=== PATIENT | female | born 1985 | race Caucasian/White ===

== ENCOUNTER 2018-11-01 16:30 | Emergency (ER) | payer BC, OTHER ==
--- OUTSIDE RECORDS SUMMARY | 2018-11-01 16:32 | XMS REPORT ---
:1985 Author Organization eClinicalWorks Care Team Providers Name Role Phone Santos, Na Provider Role Unavailable Allergies, Adverse Reactions, Alerts Substance Reaction Event Type N.K.D.A. Info Not Available Non Drug Allergy Problems Problem Type Condition Code Onset Dates Condition Status Assessment ADD (attention deficit disorder) F90.9 Active Problem Obesity (BMI 30.0-34.9) E66.9 Active Problem Carpal tunnel syndrome G56.00 Active Problem Over weight E66.3 Active Problem Acute anxiety F41.9 Active Problem Anxiety F41.9 Active Problem Peripheral neuropathy G62.9 Active Problem Allergic rhinitis J30.9 Active Problem ADD (attention deficit disorder) F90.9 Active Medications Medication Code Code Instructions Start End Status Dosage System Date Date Gabapentin ND 43292630688 100 MG Orally Active 1 capsule Three times a day Clonazepam ND 74789383242 0.25 MG Orally Active 1 tablet on three times a the tongue day and allow to dissolve before bedtime Gabapentin ND 49629329572 100 MG Orally Active 1 capsule Three times a day Adderall XR ND 00329269736 30 MG Orally Active 1 capsule Once a day in the morning EpiPen 2-Porter ND 67360868523 0.3 MG/0.3ML Active not defined Injection Nasacort AQ NDC 0 Active not defined Results No Known Results Summary Purpose eClinicalWorks Submission
--- OUTSIDE RECORDS SUMMARY | 2018-11-01 16:32 | XMS REPORT ---
:1985 Author Organization eClinicalWorks Care Team Providers Name Role Phone Santos, Na Provider Role Unavailable Allergies, Adverse Reactions, Alerts Substance Reaction Event Type N.K.D.A. Info Not Available Non Drug Allergy Problems Problem Type Condition Code Onset Dates Condition Status Assessment Nausea R11.0 Active Problem Obesity (BMI 30.0-34.9) E66.9 Active Assessment Fever chills R50.9 Active Assessment ADD (attention deficit disorder) F90.9 Active Problem Carpal tunnel syndrome G56.00 Active Problem Over weight E66.3 Active Problem Acute anxiety F41.9 Active Problem Anxiety F41.9 Active Problem Peripheral neuropathy G62.9 Active Problem Allergic rhinitis J30.9 Active Problem ADD (attention deficit disorder) F90.9 Active Medications Medication Code Code Instructions Start End Status Dosage System Date Date Clonazepam ND 14374538495 0.25 MG Orally Active 1 tablet on three times a the tongue day and allow to dissolve before bedtime Gabapentin ND 98327707147 100 MG Orally Active 1 capsule Three times a day EpiPen 2-Porter ND 84200029385 0.3 MG/0.3ML Active not defined Injection Gabapentin ND 80976414188 100 MG Orally Active 1 capsule Three times a day Nasacort AQ NDC 0 Active not defined Adderall XR ND 55242242677 30 MG Orally June 29, Active 1 capsule Once a day 2019 in the morning Results No Known Results Summary Purpose eClinicalWorks Submission
--- OUTSIDE RECORDS SUMMARY | 2018-11-01 16:32 | XMS REPORT ---
:1985 Author Organization eClinicalWorks Care Team Providers Name Role Phone Santos, Na Provider Role Unavailable Allergies No Known Allergies Problems Problem Type Condition Code Onset Dates [...] Start End Status Dosage System Date Date Nasacort AQ NDC 0 Active not defined Adderall XR [facility] 20910061405 30 MG Orally October 06, Active 1 capsule Once a day 2019 in the morning EpiPen 2-Porter ND 55455945006 0.3 MG/0.3ML Active not defined Injection Gabapentin ND 55800737809 100 MG Orally Active 1 capsule Three times a day Clonazepam ND 10091366401 0.25 MG Orally Active 1 tablet on three times a the day and allow to dissolve before bedtime Results No Known Results Summary Purpose eClinicalWorks Submission
--- OUTSIDE RECORDS SUMMARY | 2018-11-01 16:32 | XMS REPORT ---
[...] Problem ADD (attention deficit disorder) F90.9 Active Assessment Obesity (BMI 30.0-34.9) E66.9 Active Assessment Carpal tunnel syndrome G56.00 Active Assessment Acute anxiety F41.9 Active Assessment Generalized body aches R52 Active Assessment Blood tests for routine general Z00.00 Active physical examination Assessment Peripheral neuropathy G62.9 Active Medications Medication Code Code Instructions Start End Status Dosage System Date Date Gabapentin [facility] 16406814638 100 MG Orally Active 1 capsule Three times a day Gabapentin [facility] 75544151131 100 MG Orally Active 1 capsule Three times a day EpiPen 2-Porter [facility] 93187323529 0.3 MG/0.3ML Active not defined Injection Nasacort AQ NDC 0 Active not defined Adderall XR [facility] 72082853623 30 MG Orally Active 1 capsule Once a day in the morning Clonazepam ND 29720169403 0.25 MG Orally Active 1 tablet on three times a the tongue day and allow to dissolve before bedtime Results No Known Results Summary Purpose eClinicalWorks Submission
--- OUTSIDE RECORDS SUMMARY | 2018-11-01 16:32 | XMS REPORT ---
:1985 Author Organization eClinicalWorks Care Team Providers Name Role Phone Santos, Na Provider Role Unavailable Allergies, Adverse Reactions, Alerts Substance Reaction Event Type N.K.D.A. Info Not Available Non Drug Allergy Problems Problem Type Condition Code Onset Dates Condition Status Assessment Peripheral neuropathy G62.9 Active Assessment ADD (attention deficit disorder) F90.9 Active Assessment Blood tests for routine general Z00.00 Active physical examination Assessment Obesity (BMI 30.0-34.9) E66.9 Active Assessment Carpal tunnel syndrome G56.00 Active Problem ADD (attention deficit disorder) F90.9 Active Problem Anxiety F41.9 Active Problem Allergic rhinitis J30.9 Active Problem Over weight E66.3 Active Problem Obesity (BMI 30.0-34.9) E66.9 Active Problem Peripheral neuropathy G62.9 Active Problem Carpal tunnel syndrome G56.00 Active Medications Medication Code Code Instructions Start End Status Dosage System Date Date EpiPen 2-Porter [facility] 63330599909 0.3 MG/0.3ML Active not defined Injection Nasacort AQ NDC 0 Active not defined Gabapentin ND 80123821829 100 MG Orally Oct 17, Active 1 capsule Three times a 2018 day Clonazepam ND 69895930924 0.25 MG Orally Active 1 tablet on three times a the day and allow to dissolve before bedtime Adderall XR [facility] 11527958516 30 MG Orally Active 1 capsule Once a day in the morning Results No Known Results Summary Purpose eClinicalWorks Submission
[2018-11-01] MEDS ORDERED: TETANUS & DIPHTHERIA TOX,ADULT 0.5 ML VIAL ONE (16:56)
[2018-11-01] MEDS ORDERED: HYDROCODONE/APAP 5/325 MG TAB ONE (16:56)
--- NOTE | 2018-11-01 17:44 | ER ---
Nurse's Notes [facility] Name: Renate Ruth Age: 33 yrs Sex: Female : 1985 Arrival Date: 11/01/2018 Time: 16:32 Bed 28 Private MD: Diagnosis: Puncture wound with foreign body of left thumb without damage to nail Presentation: 11/01 16:37 Presenting complaint: Patient states: i was cutting open another knife that had a tie tw2 strap, when the tie strap broke the knife stabbed in to the side my LEFT thumb. Transition of care: patient was not received from another setting of care. Complicating Factors: There are no complicating factors for this patient. Onset of symptoms was November 01, 2018. Risk Assessment: Do you want to hurt yourself or someone else? Patient reports no desire to harm self or others. Initial Sepsis Screen: Does the patient meet any 2 criteria? No. Patient's initial sepsis screen is negative. Does the patient have a suspected source of infection? No. Patient's initial sepsis screen is negative. Care prior to arrival: None. 16:37 Method Of Arrival: Ambulatory tw2 16:37 Acuity: VISH 4 tw2 16:38 Presenting complaint: Patient states: "i think the knife stabbed into my thumb about a tw2 half an inch, i got lightheaded from this and it rates up there with labor pains". Triage Assessment: 16:39 General: Appears in no apparent distress. Behavior is calm, cooperative, appropriate tw2 for age. Pain: Complains of pain in palmar aspect of distal phalanx of left thumb and palmar aspect of proximal phalanx of left thumb. Injury Description: Laceration sustained to palmar aspect of distal phalanx of left thumb and palmar aspect of proximal phalanx of left thumb. 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 - Social history:: Smoking status: . - Ebola Screening: : Patient denies travel to an Ebola-affected area in the 21 days before illness onset. Screenin:42 Abuse screen: Denies threats or abuse. Nutritional screening: No deficits noted. tw2 Tuberculosis screening: No symptoms or risk factors identified. Fall Risk None identified. Assessment: 16:43 Musculoskeletal: Range of motion: intact in all extremities. Injury Description: tw2 Laceration is clean, not bleeding. 16:43 General: Appears in no apparent distress. Behavior is cooperative, appropriate for age. tw2 Pain: Complains of pain in palmar aspect of proximal phalanx of left thumb and palmar aspect of distal phalanx of left thumb. Neuro: Level of Consciousness is awake, alert, obeys commands, Oriented to person, place, time, situation. Cardiovascular: Patient's skin is warm and dry. Respiratory: Airway is patent Respiratory effort is even, unlabored, Respiratory pattern is regular, symmetrical. GI: No signs and/or symptoms were reported involving the gastrointestinal system. : No signs and/or symptoms were reported regarding the genitourinary system. Derm: No signs and/or symptoms reported regarding the dermatologic system. 18:07 Reassessment: Patient appears in no apparent distress at this time. Patient and/or ss family updated on plan of care and expected duration. Pain level reassessed. Patient is alert, oriented x 3, equal unlabored respirations, skin warm/dry/pink. Vital Signs: 16:38 BP 139 / 96; Pulse 87; Resp 17; Temp 98.4; Pulse Ox 99% on R/A; Weight 91.63 kg (R); tw2 Height 5 ft. 7 in. (170.18 cm); Pain 8/10; 16:38 Body Mass Index 31.64 (91.63 kg, 170.18 cm) tw2 ED Course: 16:32 Patient arrived in ED. as 16:38 Triage completed. tw2 16:38 Arm band placed on. tw2 16:41 Emmett Soto NP is PHCP. pm1 16:41 Wilton Little MD is Attending Physician. pm1 16:42 Bed in low position. Call light in reach. tw2 16:56 John Julien LVN is Primary Nurse. em 17:32 Wound care: to abrasion, located on palmar aspect of distal phalanx of left thumb was lt1 cleaned with Hibiclens, soaked in normal saline solution, debrided using Betadine scrub, irrigated with normal saline, dressed with Neosporin, Kerlix, non adherent pad. 17:38 Hand Right 3 View XRAY In Process Unspecified. EDMS 18:08 No provider procedures requiring assistance completed. Patient did not have IV access ss during this emergency room visit. 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 Exp: em 06/25/2020. Lot #: [id number]. } Route: IM; Site: left deltoid; 17:30 Follow up: Response: No adverse reaction em 17:00 Drug: [place] 5 mg-325 mg 1 tabs Route: PO; em 17:30 Follow up: Response: No adverse reaction; Marked relief of symptoms; Pain is decreased; em RASS: Alert and Calm (0) Outcome: 17:43 Discharge ordered by MD. pm1 18:08 Discharged to home ambulatory, with family. ss 18:08 Condition: good 18:08 Discharge instructions given to patient, family, Instructed on discharge instructions, follow up and referral plans. no drinking with medication, no driving heavy equipment, medication usage, wound care, Demonstrated understanding of instructions, follow-up care, medications, wound care, Prescriptions given X 2. 18:09 Patient left the ED. ss Signatures: Dispatcher [employer] EDDC John Julien LVN LVN em Katie Valle Shelby, EDGAR RN Emmett Soto NP FOUNTAIN HELPER pm1 Niharika Adan RN RN 2 Linda Cast lt1
--- NOTE | 2018-11-01 17:44 | EDPHYS ---
Physician Documentation [facility] Name: Renate Ruth Age: 33 yrs Sex: Female : 1985 Arrival Date: 11/01/2018 Time: 16:32 Bed 28 Private MD: ED Physician Wilton Little HPI: 11/01 16:58 This 33 yrs old Female presents to ER via Ambulatory with complaints of Thumb pm1 Laceration. 16:58 The patient or guardian reports injury. The complaints affect the palmar aspect of pm1 distal phalanx of left thumb. Context: The problem was sustained at home, resulted from Accidental laceration of left thumb while cutting open packaging. Onset: The symptoms/episode began/occurred just prior to arrival. Modifying factors: The symptoms are alleviated by pressure to area. Associated signs and symptoms: Pertinent negatives: cyanosis distally, decreased sensation distally, numbness distally, tingling distally. Severity of symptoms: in the emergency department the symptoms have improved. The patient has not experienced similar symptoms in the past. The patient has not recently seen a physician. 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 - Social history:: Smoking status: . - Ebola Screening: : Patient denies travel to an Ebola-affected area in the 21 days before illness onset. ROS: 16:58 Constitutional: Negative for fever, chills, and weight loss, Cardiovascular: Negative pm1 for chest pain, palpitations, and edema, Respiratory: Negative for shortness of breath, cough, wheezing, and pleuritic chest pain, Abdomen/GI: Negative for abdominal pain, nausea, vomiting, diarrhea, and constipation, Back: Negative for injury and pain, MS/Extremity: Negative for injury and deformity. 16:58 Neuro: Negative for headache, weakness, numbness, tingling, and seizure. 16:58 Skin: Positive for laceration(s), of the palmar aspect of distal phalanx of left thumb. Exam: 16:58 Constitutional: This is a well developed, well nourished patient who is awake, alert, pm1 and in no acute distress. Head/Face: Normocephalic, atraumatic. Chest/axilla: Normal chest wall appearance and motion. Nontender with no deformity. No lesions are appreciated. Cardiovascular: Regular rate and rhythm with a normal S1 and S2. No gallops, murmurs, or rubs. Normal PMI, no JVD. No pulse deficits. Respiratory: Lungs have equal breath sounds bilaterally, clear to auscultation and percussion. No rales, rhonchi or wheezes noted. No increased work of breathing, no retractions or nasal flaring. 16:58 Back: No spinal tenderness. No costovertebral tenderness. Full range of motion. MS/ Extremity: Pulses equal, no cyanosis. Neurovascular intact. Full, normal range of motion. 16:58 Skin: Appearance: normal except for affected area, injury, laceration(s), the wound is approximately 0.3 cm(s), of the palmar aspect of distal phalanx of left thumb, that can be described as not bleeding.. 16:58 Neuro: Orientation: is normal, Motor: is normal, moves all fours, Sensation: is normal, no obvious gross deficits, Gait: is steady, at a normal pace, without difficulty. Vital Signs: 16:38 BP 139 / 96; Pulse 87; Resp 17; Temp 98.4; Pulse Ox 99% on R/A; Weight 91.63 kg (R); tw2 Height 5 ft. 7 in. (170.18 cm); Pain 8/10; 16:38 Body Mass Index 31.64 (91.63 kg, 170.18 cm) tw2 MDM: 16:43 Patient medically screened. pm1 17:04 Data reviewed: vital signs. Data interpreted: Pulse oximetry: on room air is 99 %. pm1 Interpretation: normal. ED course: small wound is not actively bleeding and not gaping open. No apparent need for closure with sutures. Will discharge home with antibiotics post x-ray, tetanus, and pain medication. 17:42 Counseling: I had a detailed discussion with the patient and/or guardian regarding: the pm1 historical points, exam findings, and any diagnostic results supporting the discharge/admit diagnosis, radiology results, the need for outpatient follow up, to return to the emergency department if symptoms worsen or persist or if there are any questions or concerns that arise at home. 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 Exp: em 06/25/2020. Lot #: [id number]. } Route: IM; Site: left deltoid; 17:30 Follow up: Response: No adverse reaction em 17:00 Drug: [place] 5 mg-325 mg 1 tabs Route: PO; em 17:30 Follow up: Response: No adverse reaction; Marked relief of symptoms; Pain is decreased; em RASS: Alert and Calm (0) Disposition: 11/01/18 17:43 Discharged to Home. Impression: Puncture wound with foreign body of left thumb without damage to nail. - Condition is Stable. - Discharge Instructions: Puncture Wound. - Prescriptions for Keflex 500 mg Oral Capsule - take 1 capsule by ORAL route every 12 hours for 10 days; 20 capsule. Tylenol- Codeine #3 300-30 mg Oral Tablet - take 2 tablets by ORAL route every 6 hours As needed; 20 tablet. - Work release form, Medication Reconciliation Form, Thank You Letter, Antibiotic Education, Prescription Opioid Use form. - Follow up: Emergency Department; When: As needed; Reason: Worsening of condition. Follow up: Private Physician; When: 2 - 3 days; Reason: Recheck today's complaints, Continuance of care, Re-evaluation by your physician. - Problem is new. - Symptoms have improved. Addendum: 11/03/2018 15:37 Co-signature as Attending Physician, Wilton Little MD. g s Signatures: Dispatcher [employer] John Vasquez, PAINT CREW SUPERVISOR PAINT CREW SUPERVISOR em Jolanta Gomez RN RN ss Emmett Soto, WARP STARTER WARP STARTER pm1 Niharika Adan RN RN tw2 Wilton Little MD MD Corrections: (The following items were deleted from the chart) 11/01 18:09 17:43 11/01/2018 17:43 Discharged to Home. Impression: Puncture wound with foreign body ss of left thumb without damage to nail. Condition is Stable. Forms are Medication Reconciliation Form, Thank You Letter, Antibiotic Education, Prescription Opioid Use. Follow up: Emergency Department; When: As needed; Reason: Worsening of condition. Follow up: Private Physician; When: 2 - 3 days; Reason: Recheck today's complaints, Continuance of care, Re-evaluation by your physician. Problem is new. Symptoms have improved. pm1
--- NOTE | 2018-11-01 17:45 | RAD REPORT ---
EXAM DESCRIPTION: RAD - Hand Right 3 View - 11/01/2018 5:37 pm CLINICAL HISTORY: Right hand pain status post injury FINDINGS: No fracture or dislocation is seen.
== END 2018-11-01 18:09 | disposition home or self-care (01) ==
LOC: ER 16:30
DX: S61.042A Puncture wound with foreign body of left thumb without damage to nail, initial encounter (principal); W45.8XXA Other foreign body or object entering through skin, initial encounter; Y93.89 Activity, other specified; Y92.009 Unspecified place in unspecified non-institutional (private) residence as the place of occurrence of the external cause; Z23 Encounter for immunization; F90.9 Attention-deficit hyperactivity disorder, unspecified type
CPT/HCPCS: 90714

== ENCOUNTER 2018-12-21 17:30 | Emergency (ER) | payer BC ==
[2018-12-21] MEDS ORDERED: MORPHINE 4 MG/ML SYR ONE (17:57)
[2018-12-21] MEDS ORDERED: FAMOTIDINE 20 MG/2 ML VIAL IV ONE (17:57)
[2018-12-21] MEDS ORDERED: NA CHLORIDE 0.9% 1,000 ML ONE (17:57)
[2018-12-21] MEDS ORDERED: ONDANSETRON 4 MG/2 ML VIAL ONE ×2 (17:57→20:13)
[2018-12-21 18:06] LABS: Basophils % 0.3 % (0-1.3); Hematocrit 42.7 % (36.0-45.0); Lymphocytes % 10.8 % (15.3-44.8); MPV 8.8 fL (7.6-11.3); RBC Red Blood Cell Count 4.79 M/uL (3.86-4.86)
[2018-12-21 18:20] LABS: Albumin 3.4 g/dL (3.4-5.0); Bilirubin Direct 0.3 mg/dL (0-0.2); Bilirubin Total 1.3 mg/dL (0.2-1.0); Potassium 3.6 mmol/L (3.5-5.1); Protein, Total 6.8 g/dL (6.4-8.2)
--- NOTE | 2018-12-21 19:10 | RAD REPORT ---
EXAM DESCRIPTION: CTAbdomen Pelvis W Contrast - 12/21/2018 7:00 pm CLINICAL HISTORY: Abdominal pain. ABD PAIN COMPARISON: <Comparisons> TECHNIQUE: Biphasic CT imaging of the abdomen and pelvis was performed with 100 ml non-ionic IV cont rast. All CT scans are performed using dose optimization technique as appropriate and may include automated exposure control or mA/KV adjustment according to patient size. FINDINGS: The lung bases are clear. The liver, spleen, pancreas, adrenal glands and kidneys are within normal limits. No bowel obstruction, free air, free fluid or abscess. The appendix is not identified as a discrete structure, however, no secondary findings of appendicitis are identified. No evidence of significan t lymphadenopathy. No suspicious bony findings. IUD is present in the uterus. Trace pelvic free fluid. IMPRESSION: No acute intra-abdominal or pelvic finding.
[2018-12-21] MEDS ORDERED: FENTANYL CITR 100 MCG/2 ML ONE (20:13)
[2018-12-21 20:42] LABS: Urine Blood NEGATIVE (NEG); Urine Glucose NEGATIVE (NEG); Urine Protein NEGATIVE (NEG); Urine pH 5.5 (5.0-7.0)
--- NOTE | 2018-12-21 21:16 | EDPHYS ---
Physician Documentation [facility] Name: Renate Ruth Age: 33 yrs Sex: Female : 1985 Arrival Date: 12/21/2018 Time: 17:31 Bed 6 Private MD: Taylor Santos ED Physician Mike Palacio HPI: 12/21 18:10 This 33 yrs old Female presents to ER via Ambulatory with complaints of kdr Abdominal Pain. 18:10 The patient presents with abdominal pain in the epigastric area, in the upper abdomen. kdr Onset: The symptoms/episode began/occurred gradually, yesterday. The symptoms radiate to back. Associated signs and symptoms: Pertinent positives: nausea and vomiting, diarrhea, Pertinent negatives: anorexia, blood in stools, chest pain, constipation. The symptoms are described as achy, burning, crampy, steady, vague, waxing/waning. Modifying factors: The symptoms are alleviated by nothing, the symptoms are aggravated by food. Severity of pain: At its worst the pain was moderate in the emergency department the pain is unchanged. The patient has not experienced similar symptoms in the past. The patient has not recently seen a physician. [facility]: 21:34 unknown ca1 Historical: - Allergies: 17:37 No Known Allergies; sv - PMHx: 17:37 ADD/ADHD; sv - PSHx: 17:37 Tonsillectomy; sv - Immunization history:: Adult Immunizations unknown. - Social history:: Smoking status: Patient/guardian denies using tobacco. - Ebola Screening: : No symptoms or risks identified at this time. ROS: 18:10 Constitutional: Negative for fever, chills, and weight loss, Eyes: Negative for injury, kdr pain, redness, and discharge, ENT: Negative for injury, pain, and discharge, Neck: Negative for injury, pain, and swelling, Cardiovascular: Negative for chest pain, palpitations, and edema, Respiratory: Negative for shortness of breath, cough, wheezing, and pleuritic chest pain, Back: Negative for injury and pain, : Negative for injury, bleeding, discharge, and swelling, MS/Extremity: Negative for injury and deformity, Skin: Negative for injury, rash, and discoloration, Neuro: Negative for headache, weakness, numbness, tingling, and seizure activity. Psych: Negative for depression, anxiety, suicide ideation, homicidal ideation, and hallucinations, Allergy/Immunology: Negative for hives, rash, and allergies, Endocrine: Negative for neck swelling, polydipsia, polyuria, polyphagia, and marked weight changes, Hematologic/Lymphatic: Negative for swollen nodes, abnormal bleeding, and unusual bruising. 18:10 Abdomen/GI: Positive for abdominal pain, nausea, vomiting, and diarrhea, Negative for constipation, abdominal cramps, abdominal distension, anorexia, dysphagia, hematemesis, black/tarry stool, rectal pain, rectal bleeding. Exam: 18:10 Constitutional: This is a well developed, well nourished patient who is awake, alert, kdr and in mild distress. Head/Face: Normocephalic, atraumatic. Eyes: Pupils equal round and reactive to light, extra-ocular motions intact. Lids and lashes normal. Conjunctiva and sclera are non-icteric and not injected. Cornea within normal limits. Periorbital areas with no swelling, redness, or edema. Neck: Trachea midline, no thyromegaly or masses palpated, and no cervical lymphadenopathy. Supple, full range of motion without nuchal rigidity, or vertebral point tenderness. No Meningismus. Chest/axilla: Normal chest wall appearance and motion. Nontender with no deformity. No lesions are appreciated. Cardiovascular: Regular rate and rhythm with a normal S1 and S2. No gallops, murmurs, or rubs. Normal PMI, no JVD. No pulse deficits. Respiratory: Lungs have equal breath sounds bilaterally, clear to auscultation and percussion. No rales, rhonchi or wheezes noted. No increased work of breathing, no retractions or nasal flaring. Back: No spinal tenderness. No costovertebral tenderness. Full range of motion. Skin: Warm, dry with normal turgor. Normal color with no rashes, no lesions, and no evidence of cellulitis. MS/ Extremity: Pulses equal, no cyanosis. Neurovascular intact. Full, normal range of motion. Neuro: Awake and alert, GCS 15, oriented to person, place, time, and situation. Cranial nerves II-XII grossly intact. Motor strength 5/5 in all extremities. Sensory grossly intact. Cerebellar exam normal. Normal gait. Psych: Awake, alert, with orientation to person, place and time. Behavior, mood, and affect are within normal limits. 18:10 Abdomen/GI: Inspection: abdomen appears normal, Bowel sounds: active, diminished, in all quadrants, Palpation: soft, mild abdominal tenderness, in the epigastric area, mass, is not appreciated, rebound tenderness, is not appreciated, voluntary guarding, is not appreciated. Vital Signs: 17:37 BP 116 / 82; Pulse 112; Resp 22; Temp 98.2; Pulse Ox 100% ; Weight 92.99 kg; Height 5 sv ft. 7 in. (170.18 cm); Pain 6/10; 18:30 BP 112 / 80; Pulse 99; Resp 17 S; Pulse Ox 97% on R/A; ca1 19:30 BP 107 / 71; Pulse 96; Resp 17 S; Pulse Ox 100% on R/A; ca1 20:50 BP 103 / 67; Pulse 96; Resp 18 S; Pulse Ox 100% on R/A; ca1 21:33 BP 110 / 70; Pulse 93; Resp 16 S; Pulse Ox 100% on R/A; ca1 17:37 Body Mass Index 32.11 (92.99 kg, 170.18 cm) sv MDM: 18:10 Data reviewed: vital signs, nurses notes, lab test result(s), radiologic studies. kdr Counseling: I had a detailed discussion with the patient and/or guardian regarding: the historical points, exam findings, and any diagnostic results supporting the discharge/admit diagnosis, lab results, radiology results. 21:16 Patient medically screened. kdr 21:17 ED course: The patient is feeling better but still with mild epigastric pain. Gave the kdr patient the option of either admission or follow-up and she asked to be discharged. I invited her to return if she was not continuing to improve or worsen. 12/21 17:40 Order name: Basic Metabolic Panel; Complete Time: 18:33 kdr 12/21 17:40 Order name: CBC with Diff; Complete Time: 18:33 kdr 12/21 17:40 Order name: Creatinine for Radiology; Complete Time: 18:33 kdr 12/21 17:40 Order name: Hepatic Function; Complete Time: 18:33 kdr 12/21 17:40 Order name: Lipase; Complete Time: 18:33 kdr 12/21 20:15 Order name: Urine Dipstick--Ancillary (enter results); Complete Time: 21:09 mw2 12/21 17:57 Order name: CT Abd/Pelvis - IV Contrast Only; Complete Time: 20:03 kdr 12/21 20:15 Order name: Urine --Ancillary (enter results); Complete Time: 21:09 mw2 12/21 20:30 Order name: Flu kdr 12/21 20:31 Order name: Influenza Screen (A ; Complete Time: 21:55 EDMS 12/21 17:40 Order name: IV Saline Lock; Complete Time: 18:05 kdr 12/21 17:40 Order name: Labs collected and sent; Complete Time: 18:05 kdr 12/21 17:54 Order name: Urine Dipstick-Ancillary (obtain specimen); Complete Time: 20:11 kdr 12/21 17:54 Order name: Urine Test (obtain specimen); Complete Time: 20:11 kdr Administered Medications: 18:04 Drug: NS 0.9% 1000 ml Route: IV; Rate: 1 bolus; Site: right antecubital; ph 19:17 Follow up: Response: No adverse reaction; IV Status: Completed infusion ph 18:04 Drug: Pepcid 20 mg Route: IVP; Site: right antecubital; ph 19:17 Follow up: Response: No adverse reaction ph 18:05 Drug: Zofran 4 mg Route: IVP; Site: right antecubital; ph 19:17 Follow up: Response: No adverse reaction; Nausea is decreased ph 18:05 Drug: morphine 4 mg Route: IVP; Site: right antecubital; ph 19:17 Follow up: Response: No adverse reaction; Pain is decreased; RASS: Alert and Calm (0) ph 20:12 Drug: Zofran 4 mg Route: IVP; Site: right antecubital; ca1 21:24 Follow up: Response: No adverse reaction; Nausea is decreased ca1 20:15 Drug: fentaNYL (PF) 50 mcg {Note: RASS - 0.} Route: IVP; Site: right antecubital; ca1 21:00 Follow up: Response: No adverse reaction; Pain is decreased ca1 21:24 Not Given (Physician Discretion): NS 0.9% 1000 ml IV at 125 ml/hr continuous ca1 21:24 Drug: [place] 10 mg-325 mg 1 tabs Route: PO; ca1 21:33 Follow up: Response: Medication administered at discharge. ca1 Disposition: 12/21/18 21:16 Discharged to Home. Impression: Abdominal and pelvic pain, Nausea and vomiting. - Condition is Stable. - Discharge Instructions: Nausea and Vomiting, Adult, [id number], Abdominal Pain, Adult, Oewi-cl-Ulag. - Prescriptions for Protonix 40 mg Oral Tablet, Delayed Release (E.C.) - take 1 tablet by ORAL route once daily; 15 tablet. Tylenol- Codeine #4 300-60 mg Oral Tablet - take 1 tablet by ORAL route every 6 hours As needed; 12 tablet. Zofran 4 mg Oral Tablet - take 1 tablet by ORAL route every 12 hours As needed; 15 tablet. Bentyl 20 mg Oral Tablet - take 1 tablet by ORAL route every 6 hours As needed; 20 tablet. - Medication Reconciliation Form, Thank You Letter, Prescription Opioid Use form. - Work release form (12/21/18 21:54). snw - Follow up: Taylor Santos MD; When: 2 - 3 days; Reason: If symptoms return, Further diagnostic work-up, Recheck today's complaints, Continuance of care, Re-evaluation by your physician. - Problem is new. - Symptoms have improved. Signatures: Dispatcher [employer] EDSharonda Beckford RN RN Mike Palacio MD MD [facility] Katherine Nieves, MAIN LINE ASSEMBLER-C MAIN LINE ASSEMBLER-Csnw Brisa Westfall, EDGAR RN ph Brittany Guerrero RN RN ca1 Corrections: (The following items were deleted from the chart) 21:35 21:16 12/21/2018 21:16 Discharged to Home. Impression: Abdominal and pelvic pain; ca1 Nausea and vomiting. Condition is Stable. Discharge Instructions: Nausea and Vomiting, Adult, [id number], Abdominal Pain, Adult, Memr-ka-Qqli. Prescriptions for Protonix 40 mg Oral Tablet, Delayed Release (E.C.) - take 1 tablet by ORAL route once daily; 15 tablet, Tylenol-Codeine #4 300-60 mg Oral Tablet - take 1 tablet by ORAL route every 6 hours As needed; 12 tablet, Zofran 4 mg Oral Tablet - take 1 tablet by ORAL route every 12 hours As needed; 15 tablet. and Forms are Medication Reconciliation Form, Thank You Letter, Antibiotic Education, Prescription Opioid Use. Follow up: Taylor Santos; When: 2 - 3 days; Reason: If symptoms return, Further diagnostic work-up, Recheck today's complaints, Continuance of care, Re-evaluation by your physician. Problem is new. Symptoms have improved. kdr
--- NOTE | 2018-12-21 21:16 | ER ---
Nurse's Notes [facility] Name: Renate Ruth Age: 33 yrs Sex: Female : 1985 Arrival Date: 12/21/2018 Time: 17:31 Bed 6 Private MD: Taylor Santos Diagnosis: Abdominal and pelvic pain;Nausea and vomiting Presentation: 12/21 17:36 Presenting complaint: Patient states: mid abd cramping, n/v/d started last night. sv Transition of care: patient was not received from another setting of care. Onset of symptoms was December 20, 2018. Risk Assessment: Do you want to hurt yourself or someone else? Patient reports no desire to harm self or others. Care prior to arrival: None. 17:36 Method Of Arrival: Ambulatory sv 17:36 Acuity: VISH 3 sv 18:11 Initial Sepsis Screen: Does the patient meet any 2 criteria? No. Patient's initial ph sepsis screen is negative. Does the patient have a suspected source of infection? No. Patient's initial sepsis screen is negative. 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 - Social history:: Smoking status: Patient/guardian denies using tobacco. - Ebola Screening: : No symptoms or risks identified at this time. Screenin:11 Abuse screen: Denies threats or abuse. Denies injuries from another. Nutritional ph screening: No deficits noted. Tuberculosis screening: No symptoms or risk factors identified. Fall Risk None identified. Assessment: 18:07 General: Appears in no apparent distress. Behavior is calm, cooperative, appropriate ph for age. 18:08 Pain: Complains of pain in right upper quadrant and left upper quadrant. Pain: Pain ph radiates to back. Neuro: Level of Consciousness is awake, alert, obeys commands, Oriented to person, place, time, situation. Cardiovascular: Capillary refill < 3 seconds in bilateral fingers Patient's skin is warm and dry. Respiratory: Airway is patent Respiratory effort is even, unlabored, Respiratory pattern is regular, symmetrical. GI: Abdomen is round distended, Bowel sounds present X 4 quads. Abd is soft X 4 quads Reports upper abdominal pain, diarrhea, nausea, vomiting. Derm: Skin is intact, is healthy with good turgor, Skin is pink, warm \T\ dry. Musculoskeletal: Circulation, motion, and sensation intact. Range of motion: intact in all extremities. 20:05 Reassessment: Patient appears in no apparent distress at this time. Patient is alert, ca1 oriented x 3, equal unlabored respirations, skin warm/dry/pink. pt c/o abdl pain, notified provider. 20:50 Reassessment: Patient appears in no apparent distress at this time. Patient is alert, ca1 oriented x 3, equal unlabored respirations, skin warm/dry/pink. Patient states feeling better. 21:33 Reassessment: Patient appears in no apparent distress at this time. Patient is alert, ca1 oriented x 3, equal unlabored respirations, skin warm/dry/pink. Patient states feeling better. Vital Signs: 17:37 BP 116 / 82; Pulse 112; Resp 22; Temp 98.2; Pulse Ox 100% ; Weight 92.99 kg; Height 5 sv ft. 7 in. (170.18 cm); Pain 6/10; 18:30 BP 112 / 80; Pulse 99; Resp 17 S; Pulse Ox 97% on R/A; ca1 19:30 BP 107 / 71; Pulse 96; Resp 17 S; Pulse Ox 100% on R/A; ca1 20:50 BP 103 / 67; Pulse 96; Resp 18 S; Pulse Ox 100% on R/A; ca1 21:33 BP 110 / 70; Pulse 93; Resp 16 S; Pulse Ox 100% on R/A; ca1 17:37 Body Mass Index 32.11 (92.99 kg, 170.18 cm) sv ED Course: 17:31 Patient arrived in ED. rg4 17:31 Taylor Santos MD is Private Physician. rg4 17:37 Triage completed. sv 17:38 Arm band placed on. sv 17:39 Brisa Westfall RN is Primary Nurse. ph 17:40 Mike Palacio MD is Attending Physician. kdr 17:55 Inserted saline lock: 20 gauge in right antecubital area, using aseptic technique. ph Blood collected. 18:11 Patient has correct armband on for positive identification. Placed in gown. Bed in low ph position. Call light in reach. Side rails up X 1. Pulse ox on. NIBP on. Door closed. Noise minimized. Lights dimmed. Warm blanket given. 19:02 CT Abd/Pelvis - IV Contrast Only In Process Unspecified. EDMS 21:15 Taylor Santos MD is Referral Physician. kdr 21:34 No provider procedures requiring assistance completed. IV discontinued, intact, ca1 bleeding controlled, No redness/swelling at site. Pressure dressing applied. Administered Medications: 18:04 Drug: NS 0.9% 1000 ml Route: IV; Rate: 1 bolus; Site: right antecubital; ph 19:17 Follow up: Response: No adverse reaction; IV Status: Completed infusion ph 18:04 Drug: Pepcid 20 mg Route: IVP; Site: right antecubital; ph 19:17 Follow up: Response: No adverse reaction ph 18:05 Drug: Zofran 4 mg Route: IVP; Site: right antecubital; ph 19:17 Follow up: Response: No adverse reaction; Nausea is decreased ph 18:05 Drug: morphine 4 mg Route: IVP; Site: right antecubital; ph 19:17 Follow up: Response: No adverse reaction; Pain is decreased; RASS: Alert and Calm (0) ph 20:12 Drug: Zofran 4 mg Route: IVP; Site: right antecubital; ca1 21:24 Follow up: Response: No adverse reaction; Nausea is decreased ca1 20:15 Drug: fentaNYL (PF) 50 mcg {Note: RASS - 0.} Route: IVP; Site: right antecubital; ca1 21:00 Follow up: Response: No adverse reaction; Pain is decreased ca1 21:24 Not Given (Physician Discretion): NS 0.9% 1000 ml IV at 125 ml/hr continuous ca1 21:24 Drug: [place] 10 mg-325 mg 1 tabs Route: PO; ca1 21:33 Follow up: Response: Medication administered at discharge. ca1 Outcome: 21:16 Discharge ordered by . kdr 21:34 Discharged to home via wheelchair, with family. ca1 21:34 Condition: stable 21:34 Discharge instructions given to patient, Instructed on discharge instructions, follow up and referral plans. medication usage, Demonstrated understanding of instructions, follow-up care, medications, Prescriptions given X 4. 21:35 Patient left the ED. ca1 Signatures: Dispatcher [employer] EDMS Ayush Johnsonie, RN RN sv Mike Palacio MD MD [facility] Brisa Westfall RN RN Tiara Leblanc 4 Brittany Guerrero RN RN ca1 Corrections: (The following items were deleted from the chart) 18:10 18:07 General: Appears in no apparent distress. ph ph
[2018-12-21] MEDS ORDERED: HYDROCODONE/APAP 10/325 TAB ONE (21:20)
[2018-12-21 22:19] VITALS: TEMP 98.2
[2018-12-21 22:21] VITALS: O2SAT 100
[2018-12-21 22:24] VITALS: BP 110/70
== END 2018-12-21 21:35 | disposition home or self-care (01) ==
LOC: ER 17:30
DX: R11.2 Nausea with vomiting, unspecified (principal)
CPT/HCPCS: 96361; 85025; 80048; 36415; 81025; 80076; 81003; 83690; 87804 ×2; 74177; 96375; 96374; 99284; Q9967; J3010; J7030; J2405 ×2

== ENCOUNTER 2020-12-14 10:09 | Day surgery (SDC) | payer BC ==
[2020-12-11 08:51] LABS: Absolute Lymphocytes (CBC) 1.6 K/uL (0.7-4.9); Hematocrit 43.6 % (36.0-45.0); Lymphocytes % 23.2 % (15.3-44.8); MPV 8.7 fL (7.6-11.3); RBC Red Blood Cell Count 4.68 M/uL (3.86-4.86)
[2020-12-11 08:53] LABS: Urine Appearance CLEAR (Clear); Urine Bilirubin NEGATIVE (Negative); Urine Blood NEGATIVE (Negative); Urine Color YELLOW (Yellow); Urine Glucose NEGATIVE (Negative); Urine Protein NEGATIVE (Negative); Urine Urobilinogen 0.2 mg/dL (0.2-1.0)
[2020-12-11 09:00] LABS: Urine Microscopic Reflex NO UMIC
[2020-12-14] MEDS ORDERED: SCOPOLAMINE HYDROBROMIDE PATCH TD ONE ×2 (10:40→10:53)
[2020-12-14] MEDS ORDERED: Ringers Lactate 1,000 ML IV ONE ×2 (10:53→16:08)
[2020-12-14] MEDS ORDERED: CEFAZOLIN/NS 1gm 1 GM/50 ML BAG ONE (10:54)
[2020-12-14] MEDS ORDERED: CEFAZOLIN 2 GM IN 0.9% NACL 2 GM/100 ML BAG ONE (10:54)
[2020-12-14] MEDS ORDERED: FENTANYL CITR 250 MCG/5 ML ONE (12:09)
[2020-12-14] MEDS ORDERED: dexAMETHasone 10 MG/ML VIAL ONE (12:09)
[2020-12-14] MEDS ORDERED: LIDOCAINE 1% MPF 30 ML VIAL ONE (12:09)
[2020-12-14] MEDS ORDERED: ONDANSETRON 4 MG/2 ML VIAL ONE (12:09)
[2020-12-14] MEDS ORDERED: KETOROLAC 30 MG/ML INJ ONE (12:09)
[2020-12-14] MEDS ORDERED: propofoL 200 MG/20 ML VIAL IV ONE ×3 (12:09→15:25)
[2020-12-14] MEDS ORDERED: ROCURONIUM 50 MG/5 ML VIAL IV ONE (12:09)
[2020-12-14] MEDS ORDERED: KETAMINE HCL 500 MG/5 ML VIAL ONE (12:15)
[2020-12-14] MEDS: BUPIVACAINE 0.25% PF 30 ML VIAL ONE ×2 (14:15→15:25)
[2020-12-14] MEDS ORDERED: NA CHLORIDE 0.9% 1,000 ML ONE (14:24)
[2020-12-14] MEDS ORDERED: NS 0.9% VIAL 10 ML ONE (15:00)
[2020-12-14] MEDS ORDERED: VECURONIUM 10 MG/VIAL IV ONE (15:01)
[2020-12-14] MEDS ORDERED: SUGAMMADEX SODIUM 200 MG/2 ML VIAL IV ONE (15:39)
[2020-12-14 15:42] VITALS: O2SAT 100
[2020-12-14] MEDS: MEPERIDINE HCL 25 MG/ML SYR ONE ×2 (15:45→15:50)
[2020-12-14] MEDS ORDERED: HYDROCODONE/APAP 5/325 MG TAB PO PRN (15:47)
[2020-12-14] MEDS ORDERED: MEPERIDINE HCL 25 MG/ML SYR IM PRN (15:47)
[2020-12-14] MEDS ORDERED: IBUPROFEN 200 MG TAB PO PRN (15:47)
[2020-12-14] MEDS ORDERED: PROMETHAZINE INJ 25 MG/ML AMP IV PRN (15:47)
[2020-12-14] MEDS: HYDROMORPHONE HCL 1 MG/ML INJ ONE ×2 (15:55→16:00)
--- NOTE | 2020-12-14 15:55 | P.BOP ---
Preoperative diagnosis: AUB-E/O, Dysmenorrhea, Pelvic pain Postoperative diagnosis: same, endometriosis Primary procedure: Hysteroscopy ablation, Laparoscopy Endometriosis excision, bilat salpingect Secondary procedure: Left ovarian fibroma removal Livestock Slaughterer: Farhana Mckeon Estimated blood loss: min Specimen: Rt lat wall, Left USL endo, L ovarian fibroma, bilat tubes Findings: L ov fibroma/L hydrosalpinx/endo L USL/Rt lat wall/ablation 5/3.8/105/114se Transferred to: Recovery Room Condition: Good
[2020-12-14 16:32] VITALS: BP 110/59; TEMP 97.2
[2020-12-14] MEDS ORDERED: HYDROCODONE/APAP 5/325 MG TAB ONE (16:42)
[2020-12-15] MEDS ORDERED: AMPHETAMINE PO SCH (09:00)
[2020-12-15] MEDS ORDERED: DEXTROAMPHETAMINE PO SCH (09:00)
[2020-12-15] MEDS ORDERED: HOME MED 1 EA UNK (Bupropion Hcl [Wellbutrin Xl] 300 MG Tab.Er.24h) PO SCH (09:00)
== END 2020-12-14 17:00 | disposition home or self-care (01) ==
LOC: PRE 10:09
PROVIDERS: ATTEND Obstetrics & Gynecology
PROC: 0UB44ZZ Excision of Uterine Supporting Structure, Percutaneous Endoscopic Approach (ICD-10-PCS; 2020-12-14)
PROC: 0UT74ZZ Resection of Bilateral Fallopian Tubes, Percutaneous Endoscopic Approach (ICD-10-PCS; 2020-12-14)
PROC: 0UB14ZX Excision of Left Ovary, Percutaneous Endoscopic Approach, Diagnostic (ICD-10-PCS; 2020-12-14)
PROC: 0U5B8ZZ Destruction of Endometrium, Via Natural or Artificial Opening Endoscopic (ICD-10-PCS; principal; 2020-12-14 13:15)
DX: N80.3 Endometriosis of pelvic peritoneum (principal); N94.6 Dysmenorrhea, unspecified; R10.2 Pelvic and perineal pain; Z20.822 Contact with and (suspected) exposure to COVID-19
CPT/HCPCS: 85025; 36415; 86900; 86850; 81025; 86901; 88302; 88305; 81003; 58563; 58662 ×2; 58661; U0003; J2704 ×3; J3010; J1100; J2175; J1170; J0690 ×2; J7120 ×2; J7030; J2405; U0002

== ENCOUNTER 2023-07-16 08:07 | Day surgery (SDC) | payer OTHER ==
[2023-07-16 08:11] LABS: Absolute Basophils 0.1 K/uL (0-0.5); Absolute Eosinophils 0.2 K/uL (0-0.5); Absolute Lymphocytes (CBC) 2.1 K/uL (0.7-4.9); Absolute Monocytes 0.8 K/uL (0.1-1.3); Absolute Neutrophil 5.7 K/uL (1.8-8.0); Basophils % 0.7 % (0-1.3); Hemoglobin 14.5 g/dL (12.0-15.0); Lymphocytes % 23.8 % (15.3-44.8); MCH 32.3 pg (27.0-35.0); MCHC 33.6 g/dL (32.0-36.0); MCV 96.1 fL (80-100); MPV 7.9 fL (7.6-11.3); Monocytes % 8.6 % (3.3-12.3); Neutrophils % 64.9 % (41.7-73.7); Nucleated Red Blood Cells % 0.1 % (0-0); Platelets 303 thou/uL (152-406); RBC Red Blood Cell Count 4.47 M/uL (3.86-4.86); Red Cell Distribution Width 14.9 % (12.1-15.2)
--- NOTE | 2023-07-16 08:12 | RAD REPORT ---
EXAM DESCRIPTION: RAD - Chest Pa And Lat (2 Views) - 07/16/2023 8:04 am CLINICAL HISTORY: Pre op pending cholecystectomy. Hypertension COMPARISON: CHEST SINGLE VIEW dated 01/31/2010; ABDOMEN ACUTE SERIES dated 05/11/2005 TECHNIQUE: PA and lateral views of the chest were obtained. FINDINGS: The lungs are clear. Heart size is normal and central vasculature is within normal limits. No pleural effusion or pneumothorax seen. No acute bony finding noted. IMPRESSION: No acute cardiopulmonary process.
[2023-07-16 08:25] LABS: Albumin 3.5 g/dL (3.4-5.0); Albumin/Globulin Ratio 0.9 (1.1-1.8); Anion Gap 4.5 mEq/L (5.0-15.0); Bilirubin Direct 0.2 mg/dL (0-0.2); Bilirubin Indirect, Calculated 0.5 mg/dL (0.2-0.8); Bilirubin Total 0.7 mg/dL (0.2-1.0); Globulin 3.7 g/dL (2.3-3.5); Potassium 3.5 mEq/L (3.5-5.1); Protein, Total 7.2 g/dL (6.4-8.2)
[2023-07-16] MEDS: Ringers Lactate 1,000 ML IV ONE (09:00)
[2023-07-16] MEDS ORDERED: propofoL 1,000 MG/100 ML VIAL IV ONE (09:46)
[2023-07-16] MEDS ORDERED: ROCURONIUM 50 MG/5 ML VIAL IV ONE (09:51)
[2023-07-16] MEDS ORDERED: propofoL 200 MG/20 ML VIAL IV ONE ×2 (09:51→12:08)
[2023-07-16] MEDS ORDERED: FENTANYL CITR 100 MCG/2 ML ONE ×2 (09:51→11:35)
[2023-07-16] MEDS ORDERED: LIDOCAINE 2% MPF 5 ML VIAL ONE (09:54)
[2023-07-16] MEDS ORDERED: dexAMETHasone 10 MG/ML VIAL ONE (11:34)
[2023-07-16] MEDS: CEFOXITIN SODIUM 1 GM/VIAL ONE (11:35)
[2023-07-16] MEDS ORDERED: NEOSTIGMINE 1 MG/ML -10 ML VIAL ONE (12:10)
[2023-07-16] MEDS ORDERED: GLYCOPYRROLATE 0.2 MG/ML SYR ONE (12:10)
[2023-07-16] MEDS ORDERED: Mastisol Adhesive Liq ONE (12:12)
[2023-07-16] MEDS: HYDROMORPHONE HCL 1 MG/ML INJ ONE ×3 (12:34→13:11)
[2023-07-16] MEDS ORDERED: ONDANSETRON 4 MG/2 ML VIAL ONE (12:43)
[2023-07-16] MEDS: ONDANSETRON 4 MG/2 ML VIAL ONE (12:44)
--- NOTE | 2023-07-16 13:09 | P.BOP ---
Preoperative diagnosis: acute RUQ abd pain, symptomatic cholelithiasis Postoperative diagnosis: same, umbilical hernia Primary procedure: Laparoscopic cholecystectomy Secondary procedure: open repair of umbilical hernia Estimated blood loss: <10cc Specimen: gb Findings: as above Anesthesia: General Complications: None Transferred to: Recovery Room Condition: Good
[2023-07-16] MEDS: CODEINE 30MG/APAP 300MG TAB ONE (13:50)
[2023-07-16 14:41] VITALS: BP 116/82; TEMP 97.6; O2SAT 98
--- NOTE | 2023-07-16 23:56 | OP ---
Date of Procedure: 07/16/2023 Surgeon: Salvador Valle MD Preoperative Diagnoses: Acute right upper quadrant abdominal pain, symptomatic cholelithiasis, umbil ical hernia. Postoperative Diagnoses: Acute right upper quadrant abdominal pain, symptomatic cholelithiasis, umbi lical hernia. Procedures: Laparoscopic cholecystectomy and open repair of umbilical hernia. Estimated Blood Loss: Less than 10 cc. Specimen: Gallbladder. Anesthesia: General plus local. Complications: None. Indications: This is a case of a 37-year-old patient who comes to us with symptoms of acute cholecys titis and symptomatic cholelithiasis. The benefits, alternatives, and risks of laparoscopic possible open cholecystectomy were fully explained, which included, but not limited to, infection, bleeding, damage to adjacent structures, anesthesia complication, choledocholithiasis, bile leak, pancreatitis, [place], and even . She also understands this may not relieve symptoms. She might need more than o ne surgical intervention. I have to mention that on the initial we also found this patient to have an umbilical hernia that was repaired at the same time. Procedure In Detail: The patient was brought to the operating room, placed in supine position. Anes thesia was done without complication. Abdominal area was prepped and draped in usual sterile fashion . Marcaine 0.5% was injected for local anesthetic, followed by sharp incision of the skin in the inf raumbilical region. Incision was carried down until we found the fascia. We noticed the patient to have a small umbilical hernia. Hernia sac was removed. The hernia opening was included in our openi ng. We opened the area with a sharp knife and placed Vicryl #1 inside of the fascia. Chandni trocar was carefully introduced. No bleeding was obtained. I placed 3 more trocars, 5 mm each one of them, 1 in epigastric area and 2 in the right upper quadrant using the same technique, which consisted of local anesthetic, sharp incision of the skin, introduction of the trocars under direct vision. This allowed me to visualize the area of the gallbladder. Part of the omental adhesions to the gallbladde r, including omentum near the stomach were attached to the gallbladder. In order for us to continue, we have to use the LigaSure to be able to separate out those areas without any major bleeding. Thus , with the help of LigaSure, all those adhesions attached to the gallbladder were removed and then we were able to liberate the gallbladder, then put a grasper in the fundus of the gallbladder, another grasper in the infundibulum, retracting the gallbladder in the inferolateral fashion exposing the tri angle of Calot, obtaining critical view. The cystic duct and cystic artery were clearly isolated, fr eed circumferentially and a connection between those, and the gallbladder was clearly identified. I proceeded to ligate those by using at least 3 clips proximal and 1 clip distal, ligation in the middl e. Same was done with the cystic artery. No bile leak. No bleeding. The gallbladder was removed f rom the liver using Bovie cauterizer and removed from abdominal cavity using an Endo Catch through th e umbilical incision. The area was inspected once again. No bile leak. No bleeding. The area of a dhesions with no bleeding. At that moment, I proceeded to remove the trocars under direct vision, de flated pneumoperitoneum, closed the fascia and the umbilical hernia with #1 Vicryl. Irrigated subcut aneous tissue, closed that with 3-0 chromic and the skin in a subcuticular fashion with 3-0 chromic a nd Steri-Strips on top. Sponge count and instrument counts correct. The patient tolerated procedure well. The patient was sent to recovery in stable condition. BONNIE/MINNIE Voice ID: [id number] Report ID: [id number]
--- NOTE | 2023-07-16 23:56 | DS ---
Date of Discharge: 07/16/2023 Diagnoses: Acute right upper quadrant abdominal pain, symptomatic cholelithiasis, umbilical hernia. Procedures: Laparoscopic cholecystectomy and open repair of umbilical hernia. Disposition: Home. Condition: Stable. Activity: As tolerated. No heavy lifting. Followup: In my office in 1 week. Call for appointment at [phone]. Discharge Instructions: Keep area dry for 48 hours, then may shower. Keep Steri-Strips intact. Medications: Tylenol No.3. BONNIE/MODL Voice ID: [id number] Report ID: [id number]
== END 2023-07-16 14:25 | disposition home or self-care (01) ==
LOC: OR 08:07
PROVIDERS: ATTEND Surgery
PROC: 0FT44ZZ Resection of Gallbladder, Percutaneous Endoscopic Approach (ICD-10-PCS; principal; 2023-07-16 10:45)
DX: K80.20 Calculus of gallbladder without cholecystitis without obstruction (principal); K80.10 Calculus of gallbladder with chronic cholecystitis without obstruction; K42.9 Umbilical hernia without obstruction or gangrene; F90.9 Attention-deficit hyperactivity disorder, unspecified type; F32.A Depression, unspecified; F41.9 Anxiety disorder, unspecified
CPT/HCPCS: 85025; 80048; 36415; 84703; 80076; 88302; 88304; 83690; 71046; 47562; J2704 ×3; J2710; J2001; J3010 ×2; J1100; J1170 ×3; J0694; J2405 ×2; J7120

== ENCOUNTER 2024-04-06 10:09 | Emergency (ER) | payer OTHER ==
--- OUTSIDE RECORDS SUMMARY | 2024-04-06 10:12 | XMS REPORT | Continuity of Care Document ---
Author Name Unknown Address [address] [facility]. [address] [place] [address] [facility] thconnect Address [address] [facility] [address] [place] [address] Care Team Providers Care Tax Investigator Name Role Phone PCP, NOT FOUND Primary Care Physician Unavailab Corrina Mcbride Attending Clinician Unavailable Taylor Santos Attending Clinician Unavailable GC_GCBZW_Kasachi_S Attending Clinician UnavailCARLI Zimmerman Attending Clinician Unavailable GC_GCBZW_Kaadalia_S Admitting Clinician Unavailtim kilgore Payers Payer Name Policy Type Policy Number Effective Date Expirati on Date Source AETNA 53 [id number] 2021 00:00:00 [facility] AETNA - CHOICE (POS II) [id number] 2021 00:00:00 AETNA [id number] 2021 00:00:00 [place] [id number] [facility] Problems Condition Name Condition Details Condition Category Status Onset Date Resolution Date Last Treatment Date Treating Clinician Comments Source Acute vaginitis Acute Vaginitis Problem Active 9-16 00:00: 00 [facility] Pruritus of vulva Pruritus of Vulva Problem Active 9-16 00:00: 00 [facility] Bacterial vaginosis Bacterial Vaginosis Problem Active 3-26 00:00: 00 [facility] Candidiasi s of vagina Candidiasi s of Vagina Problem Active 3- 00:00: 00 [facility] Menopausal syndrome Menopausal Syndrome Problem Active 3-25 00:00: 00 [facility] Premenstru al dysphoric disorder Premenstru al Dysphoric Disorder Problem Active 9-11 00:00: 00 [facility] Irregular periods Irregular Periods Problem Active 8-02 00:00: 00 [facility] Anxiety Anxiety Problem Active 7- 00:00: 00 [facility] Attention deficit hyperactiv ity disorder Attention Deficit Hyperactiv ity Disorder Problem Active 7-26 00:00: 00 [facility] Deep pain on intercours e Deep Pain on Intercours e Problem Active 2-02 00:00: 00 [facility] Endometrio sis of pelvic peritoneum Endometrio sis of Pelvic Peritoneum Problem Active 2020-03 0-27 00:00: 00 [facility] Benign neoplasm of left ovary Benign Neoplasm of Left Ovary Problem Active 2020-03 0-27 00:00: 00 [facility] Moderate recurrent major depression Moderate Recurrent Major Depression Problem Active 8-30 00:00: 00 [facility] Polymenorr hea Polymenorr hea Problem Active 8-02 00:00: 00 [facility] Excessive menstruati on with irregular cycle Excessive Menstruati on with Irregular Cycle Problem Active 8-02 00:00: 00 [facility] Dysmenorrh ea Dysmenorrh ea Problem Active 09-18 00:00: 00 [facility] Excessive and frequent menstruati on Excessive and Frequent Menstruati on Problem Active 09-18 00:00: 00 [facility] Pelvic and perineal pain Pelvic and Perineal Pain Problem Active 09-18 00:00: 00 [facility] Lack or loss of sexual desire Lack or Loss of Sexual Desire Problem Active 2018-03 00:00: 00 [facility] Contracept ion care education Contracept ion Care Education Problem Active 2018-03 00:00: 00 [facility] Dysuria Dysuria Problem Active 09-15 00:00: 00 [facility] Urge incontinen ce of urine Urge Incontinen ce of Urine Problem Active 09-15 00:00: 00 [facility] Sterilizat ion procedure Sterilizat ion Procedure Problem Active 2016-03 00:00: 00 [facility] Abnormal weight gain Abnormal Weight Gain Problem Active 2016-03 00:00: 00 [facility] Gynecologi natty examinatio n abnormal Gynecologi natty Examinatio n Abnormal Problem Active 2016-03 00:00: 00 [facility] [id number] Calculus of gallbladde r without cholecysti tis without obstructio n Problem [facility] [id number] BMI 32.0-32.9, adult Problem [facility] [id number] Mild major depression Problem [facility] Attention deficit disorder ADD (attention deficit disorder) Problem [facility] Allergic rhinitis Allergic rhinitis Problem [facility] Overweight Over weight Problem [facility] [id number] Obesity (BMI 30.0-34.9) Problem [facility] [id number] Encounter for general adult medical examinatio n with abnormal findings Problem [facility] [id number] Pure hyperchole sterolemia Problem [facility] [id number] Chronic fatigue, unspecifie d Problem [facility] Peripheral neuropathy Peripheral neuropathy Problem [facility] Carpal tunnel syndrome Carpal tunnel syndrome Problem [facility] Anxiety state Acute anxiety Problem [facility] [id number] Seasonal allergic rhinitis, unspecifie d trigger Problem [facility] Allergies, Adverse Reactions, Alerts Allergy Name Allergy Type Status Severity Reaction(s) Onset Date Inactive Date Treating Clinician Comments Source No Known Allergie s DA Active U 2018-03 00:00: 00 [facility] [id number] Drug allergy Active Unknown [facility] Social History Social Habit Start Date Stop Date Quantity Comments Source History of Tobacco Use [facility] Sex Assigned At [facility] Smoking Status Start Date Stop Date Source Former Smoker [facility] Never Smoker [facility] Medications Ordered Medication Name Filled Medication Name Start Date Stop Date Current Medication? Ordering Clinician Indication Dosage Frequency Signature (SIG) Comments Components Source Adderall XR 30 MG Adderall XR 30 MG 2023-03 00:00: 00 No 1{capsu le_in_t he_morn ing} QD Adderall XR 30 MG clonazePAM 0.25 MG clonazePAM 0.25 MG 11-04 00:00: 00 No TID clonazePAM 0.25 MG [facility] Allergy [facility] Allergy No [facility] Allergy [facility] nystatin-tr iamcinolone 100,000 unit/g-0.1 % topical cream APPLY TO THE AFFECTED AREA(S) BY TOPICAL ROUTE 2 TIMES PER DAY IN THE MORNING AND EVENING nystatin-tr iamcinolone 100,000 unit/g-0.1 % topical cream APPLY TO THE AFFECTED AREA(S) BY TOPICAL ROUTE 2 TIMES PER DAY IN THE MORNING AND EVENING No nystatin-t riamcinolo ne 100,000 unit/g-0.1 % topical cream APPLY TO THE AFFECTED AREA(S) BY TOPICAL ROUTE 2 TIMES PER DAY IN THE MORNING AND EVENING [facility] clindamycin 2 % vaginal cream Insert 1 applicatorf ul twice a week by vaginal route for 90 days. clindamycin 2 % vaginal cream Insert 1 applicatorf ul twice a week by vaginal route for 90 days. No 1applic ator(s) ful Q3.5D clindamyci n 2 % vaginal cream Insert 1 applicator ful twice a week by vaginal route for 90 days. [facility] tinidazole 500 mg tablet Take 4 tablets every day by oral route for 3 days. tinidazole 500 mg tablet Take 4 tablets every day by oral route for 3 days. No 4 Q1D tinidazole 500 mg tablet Take 4 tablets every day by oral route for 3 days. [facility] Adderall 30 mg tablet Take 1 tablet every day by oral route. Adderall 30 mg tablet Take 1 tablet every day by oral route. No 1 Q1D Adderall 30 mg tablet Take 1 tablet every day by oral route. [facility] clonazepam clonazepam No clonazepam [facility] Wellbutrin XL 300 mg 24 hr tablet, extended release Take 1 tablet every day by oral route. Wellbutrin XL 300 mg 24 hr tablet, extended release Take 1 tablet every day by oral route. No 1 Q1D Wellbutrin XL 300 mg 24 hr tablet, extended release Take 1 tablet every day by oral route. [facility] buPROPion HCl ER (XL) 300 MG buPROPion HCl ER (XL) 300 MG No 1{table t_in_th yuri_maite shields} QD buPROPion HCl ER (XL) 300 MG Vital Signs Vital Name Observation Time Observation Value Comments S ource height 2024-02-05 11:40:00 66.75 [in_i] Com mon [facility] weight 2024-02-05 11:40:00 224 [lb_av] Comm on [facility] bmi 2024-02-05 11:40:00 35.34 kg/m2 Comm on [facility] BP Diastolic 2023-12-18 00:00:00 77 mm[Hg] [facility] Height 2023-12-18 00:00:00 67 [in_i] [facility] BP Systolic 2023-12-18 00:00:00 117 mm[Hg] [facility] BMI (Body Mass Index) 2023-12-18 00:00:00 35.3 kg/m2 [facility] Body Weight 2023-12-18 00:00:00 225.6 [lb_av] [facility] BP Diastolic 2023-12-01 00:00:00 84 mm[Hg] [facility] Body Weight 2023-12-01 00:00:00 225.6 [lb_av] [facility] BP Systolic 2023-12-01 00:00:00 120 mm[Hg] [facility] Height 2023-12-01 00:00:00 67 [in_i] [facility] BMI (Body Mass Index) 2023-12-01 00:00:00 35.3 kg/m2 [facility] height 2023-11-05 10:00:00 66.75 [in_i] Com [facility] weight 2023-11-05 10:00:00 224 [lb_av] Comm on [facility] temperature 2023-11-05 10:00:00 97.7 [degF] Com [facility] bmi 2023-11-05 10:00:00 35.34 kg/m2 Comm on [facility] oximetry 2023-11-05 10:00:00 99 % Commo n [facility] respiratory rate 2023-11-05 10:00:00 16 /min [facility] blood pressure systolic 2023-11-05 10:00:00 126 mm[Hg] [facility] blood pressure diastolic 2023-11-05 10:00:00 70 mm[Hg] [facility] BMI (Body Mass Index) 2023-07-09 00:00:00 34.3 kg/m2 [facility] Height 2023-07-09 00:00:00 67 [in_i] [facility] BP Systolic 2023-07-09 00:00:00 122 mm[Hg] [facility] BP Diastolic 2023-07-09 00:00:00 87 mm[Hg] [facility] Body Weight 2023-07-09 00:00:00 219 [lb_av] [facility] height 2023-07-04 16:00:00 66.75 [in_i] Com [facility] weight 2023-07-04 16:00:00 215 [lb_av] Comm on [facility] bmi 2023-07-04 16:00:00 33.92 kg/m2 Comm on [facility] Body Weight 2023-06-09 00:00:00 224.6 [lb_av] [facility] Height 2023-06-09 00:00:00 67 [in_i] [facility] BMI (Body Mass Index) 2023-06-09 00:00:00 35.2 kg/m2 [facility] BP Systolic 2023-06-09 00:00:00 138 mm[Hg] [facility] BP Diastolic 2023-06-09 00:00:00 84 mm[Hg] [facility] height 2023-01-10 11:40:00 66.75 [in_i] Com [facility] weight 2023-01-10 11:40:00 200 [lb_av] Comm on [facility] bmi 2023-01-10 11:40:00 31.56 kg/m2 Comm on [facility] height 2022-09-13 11:20:00 66.75 [in_i] Com [facility] weight 2022-09-13 11:20:00 204 [lb_av] Comm on [facility] temperature 2022-09-13 11:20:00 97.1 [degF] Com [facility] bmi 2022-09-13 11:20:00 32.19 kg/m2 Comm on [facility] oximetry 2022-09-13 11:20:00 98 % Commo n [facility] respiratory rate 2022-09-13 11:20:00 17 /min [facility] blood pressure systolic 2022-09-13 11:20:00 126 mm[Hg] Common [facility] blood pressure diastolic 2022-09-13 11:20:00 78 mm[Hg] [facility] height 2022-06-07 10:40:00 66.75 [in_i] Com [facility] weight 2022-06-07 10:40:00 198 [lb_av] Comm on [facility] temperature 2022-06-07 10:40:00 97.7 [degF] Com [facility] bmi 2022-06-07 10:40:00 31.24 kg/m2 Comm on [facility] oximetry 2022-06-07 10:40:00 97 % Commo n [facility] respiratory rate 2022-06-07 10:40:00 16 /min [facility] blood pressure systolic 2022-06-07 10:40:00 134 mm[Hg] [facility] blood pressure diastolic 2022-06-07 10:40:00 76 mm[Hg] [facility] height 2021-12-20 14:00:00 66.75 [in_i] Com [facility] weight 2021-12-20 14:00:00 199 [lb_av] Comm on [facility] temperature 2021-12-20 14:00:00 97.4 [degF] Com [facility] bmi 2021-12-20 14:00:00 31.4 kg/m2 Commo n [facility] oximetry 2021-12-20 14:00:00 100 % Commo n [facility] respiratory rate 2021-12-20 14:00:00 16 /min [facility] blood pressure systolic 2021-12-20 14:00:00 123 mm[Hg] [facility] blood pressure diastolic 2021-12-20 14:00:00 74 mm[Hg] Common [facility] height 2021-08-22 11:50:00 67 [in_i] Commo n [facility] weight 2021-08-22 11:50:00 205 [lb_av] Comm on [facility] bmi 2021-08-22 11:50:00 32.1 kg/m2 Commo n [facility] height 2021-06-12 16:20:00 67 [in_i] Commo n [facility] weight 2021-06-12 16:20:00 200 [lb_av] Comm on [facility] bmi 2021-06-12 16:20:00 31.32 kg/m2 Comm on [facility] height 2021-02-14 10:40:00 67 [in_i] Commo n [facility] weight 2021-02-14 10:40:00 210 [lb_av] Comm on [facility] bmi 2021-02-14 10:40:00 32.89 kg/m2 Comm on [facility] Procedures Procedure Date / Time Performed Performing Clinicia n Source Cholecystectomy (Gallbladder) 2023-03-17 00:00:00 [facility] Endometrial Ablation 2020-03-17 00:00:00 [facility] Tonsillectomy [facility] Tubal Ligation [facility] Encounters Start Date/Time End Date/Time Encounter Type Admission Type Attending [facility] Care Facility Care Department Encounter ID Source 2022-09-13 10:59:00 Outpatient LeeCorrina STLMLC STLMLC [id number] [facility] 2022-04-03 11:15:00 Outpatient LeeCorrina STLMLC STLMLC [id number] [facility] 2021-12-20 13:53:00 Outpatient Santos, Na STLMLC STLMLC [id number] [facility] 2021-12-18 14:22:00 Outpatient Santos, Na STLMLC STLMLC [id number] [facility] 2021-08-21 09:26:01 Outpatient Santos, Na STLMLC STLMLC [id number] [facility] 2021-04-11 13:36:42 Outpatient Santos, Na STLMLC STLMLC [id number] [facility] 2021-04-11 12:01:21 Outpatient Santos, Na STLMLC STLMLC [id number] [facility] 2021-04-11 12:01:03 Outpatient Santos, Na STLMLC STLMLC [id number] [facility] 2021-04-11 11:59:58 Outpatient Taylor Santos STLMLC STLC [id number] [facility] 2021-04-11 11:28:23 Outpatient Taylor Santos STLMLC STLC [id number] [facility] 2021-04-11 11:19:32 Outpatient Taylor Santos STLMLC STLC [id number] [facility] 2021-04-11 11:15:32 Outpatient Taylor Santos STLMLC STLC [id number] [facility] 2024-02-05 00:00:00 2024-02-05 00:00:00 OFFICE VISIT ESTAB PT LEVEL 4 STLC STLC [id number] [facility] 2023-12-18 00:00:00 2023-12-18 00:00:00 FLORENTINO Chamberlain: [address], [facility] [address] [place] [address] , Ph. [facility] GC_GCBZW_[facility]* [id number] [facility] 2023-12-01 00:00:00 2023-12-01 00:00:00 FLORENTINO Dumas: [address], [address], [place] [address] , Ph. [facility] GC_GCBZW_[facility]* [id number] [facility] 2023-11-28 00:00:00 2023-11-28 00:00:00 (TEL) STLMLC STLC [id number] [facility] 2023-11-05 00:00:00 2023-11-05 00:00:00 (WELLNESS) Wellness [facility] STLC [id number] [facility] 2023-07-09 00:00:00 2023-07-09 00:00:00 Devi Lambert PA: [address], [address], [place] [address] , Ph. [facility] - GC_GCBZW_Radha doss Clay* [id number] [facility] 2023-07-04 00:00:00 2023-07-04 00:00:00 OFFICE VISIT ESTAB PT LEVEL 4 [facility]MLC [facility] [id number] [facility] 2023-06-10 00:00:00 2023-06-10 00:00:00 Outpatient GC_GCBZW_Ka diyala_S PRIV PRIV [id number] [facility] 2023-06-09 00:00:00 2023-06-09 00:00:00 Kaya Barraza, [facility] [employer]: [address], [address], [place] [address] , Ph. GC_GCBZW_Ka diyala_S [facility] - GC_GCBZW_Radha doss Clay* [id number] [facility] 2023-06-05 00:00:00 2023-06-05 00:00:00 Outpatient GC_GCBZW_Ka diyala_S PRIV PRIV [id number] [facility] 2023-03-23 00:00:00 2023-03-23 00:00:00 Outpatient GC_GCBZW_Ka diyala_S PRIV PRIV [id number] [facility] 2023-02-23 00:00:00 2023-02-23 00:00:00 Outpatient GC_GCBZW_Ka diyala_S PRIV PRIV [id number] [facility] 2023-02-12 11:43:46 2023-02-12 11:43:46 Outpatient CARLI ALVAREZ [facility] [id number] [facility] 2023-01-26 00:00:00 2023-01-26 00:00:00 Outpatient GC_GCBZW_Ka diyala_S PRIV PRIV [id number] [facility] 2023-01-10 00:00:00 2023-01-10 00:00:00 OFFICE VISIT ESTAB PT LEVEL 4 [facility] [id number] [facility] 2022-11-25 00:00:00 2022-11-25 00:00:00 Outpatient GC_GCBZW_Ka diyala_S PRIV PRIV [id number] [facility] 2022-11-25 00:00:00 2022-11-25 00:00:00 Outpatient GC_GCBZW_Ka diyala_S PRIV PRIV [id number] [facility] 2022-11-25 00:00:00 2022-11-25 00:00:00 Outpatient GC_GCBZW_Ka diyala_S PRIV PRIV [id number] [facility] 2022-11-25 00:00:00 2022-11-25 00:00:00 Outpatient GC_GCBZW_Ka diyala_S PRIV PRIV [id number] [facility] 2022-11-19 00:00:00 2022-11-19 00:00:00 (TEL) [facility] [id number] [facility] 2022-11-16 00:00:00 2022-11-16 00:00:00 Outpatient GC_GCBZW_Ka diyala_S PRIV PRIV [id number] [facility] 2022-10-10 00:00:00 2022-10-10 00:00:00 Outpatient GC_GCBZW_Ka diyala_S PRIV PRIV [id number] [facility] 2022-10-09 00:00:00 2022-10-09 00:00:00 Outpatient GC_GCBZW_Ka diyala_S PRIV PRIV [id number] [facility] 2022-09-26 00:00:00 2022-09-26 00:00:00 Outpatient GC_GCBZW_Ka diyala_S PRIV PRIV [id number] [facility] 2022-09-16 00:00:00 2022-09-16 00:00:00 (TEL) STLMLC STLMLC [id number] [facility] 2022-09-13 00:00:00 2022-09-13 00:00:00 OFFICE VISIT ESTAB PT LEVEL 4 STLMLC STLMLC [id number] [facility] 2022-06-07 00:00:00 2022-06-07 00:00:00 OFFICE VISIT ESTAB PT LEVEL 4 STLMLC STLMLC [id number] [facility] 2022-03-27 00:00:00 2022-03-27 00:00:00 (TEL) STLMLC STLMLC [id number] [facility] 2021-12-27 00:00:00 2021-12-27 00:00:00 (TEL) STLMLC STLMLC [id number] [facility] 2021-12-25 00:00:00 2021-12-25 00:00:00 (TEL) STLMLC STLMLC [id number] [facility] 2021-12-20 00:00:00 2021-12-20 00:00:00 OFFICE VISIT ESTAB PT LEVEL 4 STLMLC STLMLC [id number] [facility] 2021-10-04 00:00:00 2021-10-04 00:00:00 (TEL) STLMLC STLMLC [id number] [facility] 2021-08-22 00:00:00 2021-08-22 00:00:00 OFFICE VISIT EST PT LEVEL 3 STLMLC STLMLC [id number] [facility] 2021-08-10 00:00:00 2021-08-10 00:00:00 (TEL) STLMLC STLMLC [id number] [facility] 2021-06-12 00:00:00 2021-06-12 00:00:00 OFFICE VISIT EST PT LEVEL 3 STLMLC STLMLC [id number] [facility] 2021-05-17 00:00:00 2021-05-17 00:00:00 (TEL) STLMLC STLMLC [id number] [facility] 2021-03-08 00:00:00 2021-03-08 00:00:00 (TEL) STLMLC STLMLC [id number] [facility] 2021-02-14 00:00:00 2021-02-14 00:00:00 OFFICE VISIT ESTAB PT LEVEL 4 STLMLC STLMLC [id number] [facility] 2020-10-25 00:00:00 2020-10-25 00:00:00 OFFICE VISIT EST PT LEVEL 3 STLMLC STLMLC [id number] [facility] 2020-05-10 00:00:00 2020-05-10 00:00:00 Outpatient STLMLC STLMLC [id number] [facility] 2020-05-10 00:00:00 2020-05-10 00:00:00 Outpatient STLMLC STLMLC [id number] [facility] 2020-05-10 00:00:00 2020-05-10 00:00:00 Outpatient STLMLC STLMLC [id number] [facility] 2020-03-20 00:00:00 2020-03-20 00:00:00 Outpatient STLMLC STLMLC [id number] [facility] 2020-01-27 00:00:00 2020-01-27 00:00:00 Outpatient STLMLC STLMLC [id number] [facility] 2020-01-19 00:00:00 2020-01-19 00:00:00 Outpatient STLMLC STLMLC [id number] [facility] 2019-12-07 00:00:00 2019-12-07 00:00:00 Outpatient STLMLC STLMLC [id number] [facility] 2019-09-13 16:40:00 2019-09-13 16:40:[address] [id number] [facility] 2019-07-12 16:20:00 2019-07-12 16:20:[address] [facility] [id number] [facility] 2019-06-08 18:11:00 2019-06-08 18:11:[address] [facility] [id number] [facility] 2019-06-08 14:22:00 2019-06-08 14:22:[address] [facility] [id number] [facility] 2019-04-29 10:00:00 2019-04-29 10:00:00 [facility] [id number] [facility] 2019-04-23 13:20:00 2019-04-23 13:20:[address] [facility] [id number] [facility] 2019-02-01 15:00:00 2019-02-01 15:00:[address] [facility] [id number] [facility] 2018-11-30 11:00:00 2018-11-30 11:00:[address] [id number] [facility] 2018-10-06 16:20:00 2018-10-06 16:20:[address] [facility] [id number] [facility] 2018-06-29 11:00:00 2018-06-29 11:00:[address] [facility] [id number] [facility] 2018-05-11 11:30:00 2018-05-11 11:30:[address] [facility] [id number] [facility] 2018-03-03 14:15:00 2018-03-03 14:15:[address] [facility] [id number] [facility] 2017-10-24 08:56:00 2017-10-24 08:56:00 Outpatient [facility] [id number] [facility] 2017-10-17 11:15:00 2017-10-17 11:15:00 Outpatient [facility] [id number] [facility] Results Test Description Test Time Test Comments Results Result Co mments Source [facility] Medicalinterpretation:2023-12-02 00:00:00* Test Item Value Reference Range Interpretation Comme nts interpretation: (test code = interpretation:) [facility] [id number] 00:00:00* Test Item Value Reference Range Interpretation Comme nts HCV Ab (test code = HCV Ab) Non Reactive non reactive [facility] [id number] 00:00:00* Test Item Value Reference Range Interpretation Comme nts RPR (test code = RPR) Non Reactive non reactive [facility] surface Ag [Presence] in Serum or Plasma by [id number] 00:00:00* Test Item Value Reference Range Interpretation Comme nts HBsAg screen (test code = HB sAg screen) Negative negative [facility] Medicalinfectious disease [id number] 00:00:00* Test Item Value Reference Range Interpretation Comme nts atopobium vaginae (test code = atopobium vaginae) 14.654 ppm 19.961-24.689 A bvab 2,3 (bacterial vaginosi s associated bacteria 2, 3); mobiluncus spp (test code = bvab 2,3 (bacterial vaginosis associated bacteria 2, 3); mobiluncus spp) 0.000 ppm 19.961-24.689 sarah beth albicans, parapsilos is, tropicalis (test code = sarah beth albicans, parapsilosis, tropicalis) 0.000 ppm 19.961-30.770 sarah beth glabrata (test code = sarah beth glabrata) 0.000 ppm 23.000-32.138 sarah beth krusei (test code = sarah beth krusei) 0.000 ppm 23.000-32.271 chlamydia trachomatis (test code = chlamydia trachomatis) 0.000 ppm 23.000-31.467 gardnerella vaginalis (test code = gardnerella vaginalis) 13.755 ppm 19.961-24.689 A herpes simplex virus 1 (test code = herpes simplex virus 1) 0.000 ppm 23.000-32.355 herpes simplex virus 2 (test code = herpes simplex virus 2) 0.000 ppm 23.000-31.433 megasphaera (types 1, 2) (te st code = megasphaera (types 1, 2)) 0.000 ppm 19.961-24.689 neisseria gonorrhoeae (test code = neisseria gonorrhoeae) 0.000 ppm 23.000-32.117 trichomonas vaginalis (test code = trichomonas vaginalis) 0.000 ppm 23.000-32.119 ermb, C; mefa (test code = e rmb, C; mefa) 15.268 ppm 23.000-27.611 A tet B, tet M (test code = te t B, tet M) 13.729 ppm 23.000-27.778 A [facility] W/AUTO [id number] 00:00:00* Test Item Value Reference Range Interpretation Comme nts NUCLEATED RBCS (test code = 14993-8) 0.0 /100 WBC'S See_Comment [Automated messa ge] The system which generated this result transmitted reference range: 0.0 /100 WBC'S. The reference range was not used to interpret this result as normal/abnormal. ABSOLUTE EOSINOPHILS (test code = 21009-9) 0.21 K/UL See_Comment [Automated messa ge] The system which generated this result transmitted reference range: 0.00-0.50 K/UL. The reference range was not used to interpret this result as normal/abnormal. ABSOLUTE LYMPHOCYTES (test code = 94256-7) 1.62 K/UL See_Comment [Automated messa ge] The system which generated this result transmitted reference range: 1.00-4.00 K/UL. The reference range was not used to interpret this result as normal/abnormal. ABSOLUTE MONOCYTES (test code = 82773-7) 0.63 K/UL See_Comment [Automated messa ge] The system which generated this result transmitted reference range: 0.20-1.00 K/UL. The reference range was not used to interpret this result as normal/abnormal. ABSOLUTE NEUTROPHILS (test code = 04324-4) 6.68 K/UL See_Comment [Automated messa ge] The system which generated this result transmitted reference range: 1.50-7.50 K/UL. The reference range was not used to interpret this result as normal/abnormal. BASOPHILS (test code = 92302-5) 0.9 % EOSINOPHILS (test code = 25825-6) 2.3 % HEMATOCRIT (test code = 54187-1) 43.8 % See_Comment [Automated messa ge] The system which generated this result transmitted reference range: 34.0-45.0 %. The reference range was not used to interpret this result as normal/abnormal. HEMOGLOBIN (test code = 718-7) 14.1 G/DL See_Comment [Automated messa ge] The system which generated this result transmitted reference range: 11.5-15.5 G/DL. The reference range was not used to interpret this result as normal/abnormal. LYMPHOCYTES (test code = 68710-1) 17.5 % MCH (test code = 43011-4) 31.6 PG See_Comment [Automated messa ge] The system which generated this result transmitted reference range: 25.0-33.0 PG. The reference range was not used to interpret this result as normal/abnormal. MCHC (test code = 81189-9) 32.2 G/DL See_Comment [Automated messa ge] The system which generated this result transmitted reference range: 31.0-36.0 G/DL. The reference range was not used to interpret this result as normal/abnormal. MCV (test code = 98895-9) 98.2 fL See_Comment [Automated messa ge] The system which generated this result transmitted reference range: 80.0-99.0 fL. The reference range was not used to interpret this result as normal/abnormal. MONOCYTES (test code = 01119-1) 6.8 % NEUTROPHILS (test code = 43425-6) 72.2 % PLATELET COUNT (test code = 72795-9) 276 K/UL See_Comment [Automated messa ge] The system which generated this result transmitted reference range: 130-400 K/UL. The reference range was not used to interpret this result as normal/abnormal. RBC (test code = 42429-6) 4.46 M/UL See_Comment [Automated Shouta Baravento] The system which generated this result transmitted reference range: 3.80-5.40 M/UL. The reference range was not used to interpret this result as normal/abnormal. RDW (test code = 89234-6) 12.1 % See_Comment [Automated Shouta ge] The system which generated this result transmitted reference range: 11.5-15.0 %. The reference range was not used to interpret this result as normal/abnormal. WBC (test code = 19622-5) 9.3 K/UL See_Comment [Automated Shouta Baravento] The system which generated this result transmitted reference range: 3.5-11.0 K/UL. The reference range was not used to interpret this result as normal/abnormal. HIV 1+2 Ab+HIV1 p24 Ag [Presence] in Serum or Plasma by [id number] 00:00:00* Test Item Value Reference Range Interpretation Comme nts HIV Ag/Ab (test code = HIV Ag/Ab) non-reactive non-reactive HIV-1 P24 Ag (test code = HI V-1 P24 Ag) non-reactive non-reactive HIV 1+2 Ab (test code = HIV 1+2 Ab) non-reactive non-reactive [facility] Ab [Presence] in Serum by [id number] 00:00:00* Test Item Value Reference Range Interpretation Comme nts RPR (test code = RPR) non-reactive non-reactive [facility] [id number] 00:00:00* Test Item Value Reference Range Interpretation Comme nts glucose (test code = glucose) 90 mg/dL 70-99 [facility] MedicalThyrotropin [Units/volume] in Serum or [id number] 00:00:00* Test Item Value Reference Range Interpretation Comme nts TSH (test code = TSH) 0.626 uIU/mL 0.500-4.530 [facility] MedicalEstradiol (E2) [Mass/volume] in Serum or [id number] 00:00:00 * Test Item Value Reference Range Interpretation Comme nts estradiol (test code = estradiol) 59.7 pg/mL 6.1-91.9 [facility] MedicalFollitropin [Units/volume] in Serum or [id number] 00:00:00* Test Item Value Reference Range Interpretation Comme nts FSH (test code = FSH) 6.7 mIU/mL [facility] MedicalLipid 1996 panel - Serum or [id number] 00:00:00* Test Item Value Reference Range Interpretation Comme nts cholesterol (test code = cholesterol) 236 mg/dL 0-200 H triglycerides (test code = triglycerides) 109 mg/dL 10-150 HDL cholesterol (test code = HDL cholesterol) 73 mg/dL >50 HDL risk factor (test code = HDL risk factor) 3.2 calc. VLDL cholesterol (test code = VLDL cholesterol) 22 calc Cholesterol in LDL [Mass/vol ume] in Serum or Plasma (test code = 2089-1) 147 mg/dL <100 H [facility] Medicalinfectious disease [id number] 12:44:00* Test Item Value Reference Range Interpretation Comme nts chlamydia trachomatis (test code = chlamydia trachomatis) 0 ppm 10.500-32.000 trichomonas vaginalis (test code = trichomonas vaginalis) 0 ppm 10.500-32.000 ermb, C; mefa (test code = e rmb, C; mefa) 21.562 ppm A tet B, tet M (test code = te t B, tet M) 19.74 ppm A dfr (A1, A5), sul (1, 2) (te st code = dfr (A1, A5), sul (1, 2)) 0 ppm neisseria gonorrhoeae (test code = neisseria gonorrhoeae) 0 ppm 10.500-32.000 bvab 2,3 (bacterial vaginosis-associated bacteria 2,3); mobiluncus spp (test code = bvab 2,3 (bacterial vaginosis-associated bacteria 2,3); mobiluncus spp) 0 ppm 10.500-32.000 gardnerella vaginalis (test code = gardnerella vaginalis) 23.778 ppm 10.500-32.000 A megasphaera (types 1, 2) (te st code = megasphaera (types 1, 2)) 0 ppm 10.500-32.000 atopobium vaginae (test code = atopobium vaginae) 25.519 ppm 10.500-32.000 A herpes simplex virus 1 (test code = herpes simplex virus 1) 0 ppm 10.500-32.000 herpes simplex virus 2 (test code = herpes simplex virus 2) 0 ppm 10.500-32.000 sarah beth albicans, parapsilos is, tropicalis (test code = sarah beth albicans, parapsilosis, tropicalis) 0 ppm 10.500-32.000 sarah beth glabrata (test code = sarah beth glabrata) 0 ppm 10.500-32.000 sarah beth krusei (test code = sarah beth krusei) 0 ppm 10.500-32.000 [facility] C virus Ab [Presence] in [id number] 00:00:00* Test Item Value Reference Range Interpretation Comme nts ethnicity: (test code = ethnicity:) non- race: (test code = race:) white () hep. C Ab. (test code = hep. C Ab.) non-reactive non-reactive [facility]atitis B virus surface Ag [Presence] in [id number] 00:00:00* Test Item Value Reference Range Interpretation Comme nts ethnicity: (test code = ethnicity:) non- race: (test code = race:) white () hep. B surf. Ag (test code = hep. B surf. Ag) [facility] [id number] [facility]:00:00* Test Item Value Reference Range Interpretation Comme nts NUCLEATED RBCS (test code = 75842-5) 0.0 /100 WBC'S See_Comment [Automated messa ge] The system which generated this result transmitted reference range: 0.0 /100 WBC'S. The reference range was not used to interpret this result as normal/abnormal. ABSOLUTE EOSINOPHILS (test code = 40915-8) 0.09 K/UL See_Comment [Automated messa ge] The system which generated this result transmitted reference range: 0.00-0.50 K/UL. The reference range was not used to interpret this result as normal/abnormal. ABSOLUTE LYMPHOCYTES (test code = 01547-5) 1.18 K/UL See_Comment [Automated messa ge] The system which generated this result transmitted reference range: 1.00-4.00 K/UL. The reference range was not used to interpret this result as normal/abnormal. ABSOLUTE MONOCYTES (test code = 44757-4) 0.61 K/UL See_Comment [Automated messa ge] The system which generated this result transmitted reference range: 0.20-1.00 K/UL. The reference range was not used to interpret this result as normal/abnormal. ABSOLUTE NEUTROPHILS (test code = 70398-5) 7.63 K/UL See_Comment H [Automated messa ge] The system which generated this result transmitted reference range: 1.50-7.50 K/UL. The reference range was not used to interpret this result as normal/abnormal. BASOPHILS (test code = 47026-8) 0.8 % EOSINOPHILS (test code = 96017-7) 0.9 % HEMATOCRIT (test code = 25932-0) 45.3 % See_Comment H [Automated messa ge] The system which generated this result transmitted reference range: 34.0-45.0 %. The reference range was not used to interpret this result as normal/abnormal. HEMOGLOBIN (test code = 718-7) 15.5 G/DL See_Comment [Automated messa ge] The system which generated this result transmitted reference range: 11.5-15.5 G/DL. The reference range was not used to interpret this result as normal/abnormal. LYMPHOCYTES (test code = 30808-0) 12.3 % MCH (test code = 62804-1) 32.8 PG See_Comment [Automated messa ge] The system which generated this result transmitted reference range: 25.0-33.0 PG. The reference range was not used to interpret this result as normal/abnormal. MCHC (test code = 50623-5) 34.2 G/DL See_Comment [Automated messa ge] The system which generated this result transmitted reference range: 31.0-36.0 G/DL. The reference range was not used to interpret this result as normal/abnormal. MCV (test code = 78560-7) 96.0 fL See_Comment [Automated messa ge] The system which generated this result transmitted reference range: 80.0-99.0 fL. The reference range was not used to interpret this result as normal/abnormal. MONOCYTES (test code = 65584-1) 6.3 % NEUTROPHILS (test code = 10566-1) 79.3 % PLATELET COUNT (test code = 60633-3) 324 K/UL See_Comment [Automated messa ge] The system which generated this result transmitted reference range: 130-400 K/UL. The reference range was not used to interpret this result as normal/abnormal. RBC (test code = 28549-9) 4.72 M/UL See_Comment [Automated messa ge] The system which generated this result transmitted reference range: 3.80-5.40 M/UL. The reference range was not used to interpret this result as normal/abnormal. RDW (test code = 95651-0) 12.7 % See_Comment [Automated messa ge] The system which generated this result transmitted reference range: 11.5-15.0 %. The reference range was not used to interpret this result as normal/abnormal. WBC (test code = 29687-6) 9.6 K/UL See_Comment [Automated messa ge] The system which generated this result transmitted reference range: 3.5-11.0 K/UL. The reference range was not used to interpret this result as normal/abnormal. COMPREHENSIVE METABOLIC PANEL(CMP)2021-12-21 00:00:00* Test Item Value Reference Range Interpretation Comme nts GLUCOSE (test code = 2345-7) 91 mg/dL See_Comment N [Automated message] The system which generated this result transmitted reference range: 65-139 mg/dL. The reference range was not used to interpret this result as normal/abnormal. UREA NITROGEN (BUN) (test code = 3094-0) 10 mg/dL See_Comment N [Automated message] The system which generated this result transmitted reference range: 7-25 mg/dL. The reference range was not used to interpret this result as normal/abnormal. CREATININE (test code = 2160-0) 0.80 mg/dL See_Comment N [Automated message] The system which generated this result transmitted reference range: 0.50-0.97 mg/dL. The reference range was not used to interpret this result as normal/abnormal. BUN/CREATININE RATIO (test code = 3097-3) NOT APPLICABLE (calc) See_Comment [Automated message] The system which generated this result transmitted reference range: 6-22 (calc). The reference range was not used to interpret this result as normal/abnormal. SODIUM (test code = 2951-2) 139 mmol/L See_Comment N [Automated message] The system which generated this result transmitted reference range: 135-146 mmol/L. The reference range was not used to interpret this result as normal/abnormal. POTASSIUM (test code = 2823-3) 3.8 mmol/L See_Comment N [Automated message] The system which generated this result transmitted reference range: 3.5-5.3 mmol/L. The reference range was not used to interpret this result as normal/abnormal. CHLORIDE (test code = 2075-0) 103 mmol/L See_Comment N [Automated message] The system which generated this result transmitted reference range: 98-110 mmol/L. The reference range was not used to interpret this result as normal/abnormal. CARBON DIOXIDE (test code = 8-9) 24 mmol/L See_Comment N [Automated message] The system which generated this result transmitted reference range: 20-32 mmol/L. The reference range was not used to interpret this result as normal/abnormal. CALCIUM (test code = 78129-1) 9.7 mg/dL See_Comment N [Automated message] The system which generated this result transmitted reference range: 8.6-10.2 mg/dL. The reference range was not used to interpret this result as normal/abnormal. PROTEIN, TOTAL (test code = 2885-2) 6.9 g/dL See_Comment N [Automated message] The system which generated this result transmitted reference range: 6.1-8.1 g/dL. The reference range was not used to interpret this result as normal/abnormal. ALBUMIN (test code = 1751-7) 4.3 g/dL See_Comment N [Automated message] The system which generated this result transmitted reference range: 3.6-5.1 g/dL. The reference range was not used to interpret this result as normal/abnormal. GLOBULIN (test code = 79282-9) 2.6 g/dL (calc) See_Comment N [Automated message] The system which generated this result transmitted reference range: 1.9-3.7 g/dL (calc). The reference range was not used to interpret this result as normal/abnormal. ALBUMIN/GLOBULIN RATIO (test code = 1759-0) 1.7 (calc) See_Comment N [Automated message] The system which generated this result transmitted reference range: 1.0-2.5 (calc). The reference range was not used to interpret this result as normal/abnormal. BILIRUBIN, TOTAL (test code = 1975-2) 1.4 mg/dL See_Comment H [Automated message] The system which generated this result transmitted reference range: 0.2-1.2 mg/dL. The reference range was not used to interpret this result as normal/abnormal. ALKALINE PHOSPHATASE (test code = 6768-6) 80 U/L See_Comment N [Automated message] The system which generated this result transmitted reference range: 31-125 U/L. The reference range was not used to interpret this result as normal/abnormal. AST (test code = 1920-8) 21 U/L See_Comment N [Automated message] The system which generated this result transmitted reference range: 10-30 U/L. The reference range was not used to interpret this result as normal/abnormal. ALT (test code = 1742-6) 38 U/L See_Comment H [Automated message] The system which generated this result transmitted reference range: 6-29 U/L. The reference range was not used to interpret this result as normal/abnormal. REFLEXIVE URINE [id number] 00:00:00REFLEXIVE URINE [id number] 14:51:00 RUN DATE: 02/03/19 [facility] PAGE 1 RUN TIME: 1451 Specimen Inquiry RUN USER: INTERFACE -- PATIENT: RENATE MURRAY LOC: ADRIÁN U #: [id number] AGE/SX: 33/F ROOM: RE02/02/19REG DR: Rose Hayes : 81 BED: DIS: [place] [facility] [place] SPEC #: [id number]:[id number] RECD: 02/02/19 STATUS: OSCAR REQ #: [id number] SUDHIR: 02/02/191406 SUBM DR: Rose Hayes MD ENTERED: 02/02/19 SP TYPE: SURG OTHR DR: Taylor Santos DO ORDERED: SURG PATH LVL 2/2, SURG PATH LVL 4 COPIES TO: Rose Hayes MD [address] [facility] [place] [address] Gamx,Na Ly DO [address] [facility] [address] [place] [address] HISTOLOGY: TISSUE ID BLK PCS EARL LEV PROCEDURE DISPOSITION ____ ___ ___ ___ LIGAMENT, NOS A 1 1 FALLOPIAN TUBE, B 1 1 OVARY, NOS C 1 1 PROCEDURES: SURG PATH LVL 2 (02/02/19) SURG PATH LVL 4 (02/03/19) TISSUES: A. LIGAMENT, NOS - RIGHT UTERAL OVARIAN LIGAMENT B. FALLOPIAN TUBE, NOS - RIGHT FALLOPIAN TUBE C. OVARIAN - LEFT OVARIAN TUBE CLINICAL HISTORY DESIRES STERILIZATION -Z23 CPT CODES CPT CODE(S): 88568 , 61312U4 , , , , , FINAL DIAGNOSIS A. Utero-ovarian ligament, right, cystectomy: PARATUBAL CYST WITH HEMORRHAGE B. Fallopian tube, right, salpingectomy: CONTINUED ON NEXT PAGE RUN DATE: 02/03/19 [facility] PAGE 2 RUN TIME: 1450 Specimen Inquiry RUN USER: INTERFACE SPEC #: [facility]:[id number] PATIENT: RENATE MURRAY #[id number] (Continued) FINAL DIAGNOSIS (Continued) COMPLETE CROSS-SECTION OF UNREMARKABLE FALLOPIAN TUBE C. Fallopian tube, left, salpingectomy: COMPLETE CROSS SECTION OF UNREMARKABLE FALLOPIAN TUBE GROSS DESCRIPTION A. Right utero-ovarian ligament. Received in formalin is a fragment of brown soft tissue, 0.7 x 0.5 x 0.3 cm with attached collapsed cystic structure, 0.6 x 0.5 x 0.2 cm. The specimen is bisected and reveals a thin walled cyst with a smooth trejo inner lining and without excrescences. The entire specimen submitted as A. B. Right fallopian tube. Received in formalin is a cylindrical segment of trejo soft tissue, 1.0 x 0.6 x 0.5 cm, grossly consistent with segment of fallopian tube. The specimen is sectioned and reveals an intact lumen and is grossly unremarkable. Supervising Film Or Videotape Editor section submitted as Rufino Hedrick. Left fallopian tube. Received in formalin is a cylindrical segment of trejo soft tissue, 1.5 x 0.7 x 0.6 cm, grossly consistent with segment of fallopian tube. The specimen is sectioned and reveals an intact lumen and isgrossly unremarkable. Supervising Film Or Videotape Editor section submitted as C. ba/nr Grossing performed at [facility], [address] [place] [address], [address], [place] [address]. Tube Tester: Demarco Calderon M.D. MICROSCOPIC DESCRIPTION A. Right utero-ovarian ligament. Sections demonstrate paratubal tissue with A paratubal cyst and focal hemorrhagic areas. No malignant features are identified. B. Right fallopian tube. Sections demonstrate complete cross-section of unremarkable fallopian tube. C. Left fallopian tube. Sections demonstrate complete cross-section of unremarkable fallopian tube. - Signed SIGNATURE ON FILE Efe Courtney 02/03/19 1451 END OF REPORT UA RFLX MICR CULT IF [id number] 11:44:00* Test Item Value Reference Range Interpretation Comme nts UA COLOR (test code = COLU) STRAW discript YEL/STRAW UA APPEARANCE (test code = APPU) CLEAR discript CLEAR UA GLUCOSE DIPSTICK (test code = DGLUU) NEGATIVE mg/dL NEG UA BILIRUBIN DIPSTICK (test code = BILU) NEGATIVE mg/dL NEG UA KETONE DIPSTICK (test code = KETU) NEGATIVE mg/dL NEG UA SPECIFIC GRAVITY (test code = SGU) <=1.005 SG 1.005-1.030 UA BLOOD DIPSTICK (test code = SRINIVAS) 1+ mg/DL NEG A UA PH DIPSTICK (test code = MAXX) 5.5 pH UNITS 5.0-7.0 UA PROTEIN DIPSTICK (test code = PROU) NEGATIVE mg/dL NEG UA UROBILINIOGEN DIPSTICK (test code = URO) 0.2 mg/dL <2.0 UA NITRITE DIPSTICK (test code = HA) NEGATIVE SCREEN NEG UA LEUKOCYTE ESTERASE DIPSTICK (test code = LEUU) NEGATIVE Leuk/mcL NEGATIVE UA WBC (test code = WBCU) 0-1 #WBC/HPF 0-3 UA RBC (test code = RBCU) 0-1 #RBC/HPF 0-3 UA SQUAMOUS CELLS (test code = SQU) TRACE /HPF NONE UA CULTURE NEEDED? (test code = UACULT) NO, WBC<10 Criteria Culture CHK SOURCE OF URINE: CLEAN CATCHIndication for culture: Sev. Sepsis-no other srcSpec Comments: NO ORDERFOR URINE CULTUREComments to Phleb: PATUR HCG [id number] 11:44:00* Test Item Value Reference Range Interpretation Comme nts UR HCG QUAL (test code = HCGQLU) NEGATIVE NEGATIVE SOURCE OF URINE: CLEAN CATCHIndication for culture: Sev. Sepsis-no other srcSpec Comments: NO ORDERFOR URINE CULTUREComments to Phleb: PATUA RFLX MICR CULT IF [id number] 11:36:00* Test Item Value Reference Range Interpretation Comme nts UA COLOR (test code = COLU) STRAW discript YEL/STRAW UA APPEARANCE (test code = APPU) CLEAR discript CLEAR UA GLUCOSE DIPSTICK (test code = DGLUU) NEGATIVE mg/dL NEG UA BILIRUBIN DIPSTICK (test code = BILU) NEGATIVE mg/dL NEG UA KETONE DIPSTICK (test code = KETU) NEGATIVE mg/dL NEG UA SPECIFIC GRAVITY (test code = SGU) <=1.005 SG 1.005-1.030 UA BLOOD DIPSTICK (test code = SRINIVAS) 1+ mg/DL NEG A UA PH DIPSTICK (test code = MAXX) 5.5 pH UNITS 5.0-7.0 UA PROTEIN DIPSTICK (test code = PROU) NEGATIVE mg/dL NEG UA UROBILINIOGEN DIPSTICK (test code = URO) 0.2 mg/dL <2.0 UA NITRITE DIPSTICK (test code = HA) NEGATIVE SCREEN NEG UA LEUKOCYTE ESTERASE DIPSTICK (test code = LEUU) NEGATIVE Leuk/mcL NEGATIVE UA CULTURE NEEDED? (test code = UACULT) Criteria Culture CHK SOURCE OF URINE: CLEAN CATCHIndication for culture: Sev. Sepsis-no other srcSpec Comments: NO ORDERFOR URINE CULTUREComments to Phleb: PATUR HCG [id number] 11:36:00* Test Item Value Reference Range Interpretation Comme nts UR HCG QUAL (test code = HCGQLU) NEGATIVE SOURCE OF URINE: CLEAN CATCHIndication for culture: Sev. Sepsis-no other srcSpec Comments: NO ORDERFOR URINE CULTUREComments to Phleb: PATUA RFLX MICR CULT IF [id number] 11:36:00* Test Item Value Reference Range Interpretation Comme nts UA COLOR (test code = COLU) STRAW discript YEL/STRAW UA APPEARANCE (test code = APPU) CLEAR discript CLEAR UA GLUCOSE DIPSTICK (test code = DGLUU) NEGATIVE mg/dL NEG UA BILIRUBIN DIPSTICK (test code = BILU) NEGATIVE mg/dL NEG UA KETONE DIPSTICK (test code = KETU) NEGATIVE mg/dL NEG UA SPECIFIC GRAVITY (test code = SGU) <=1.005 SG 1.005-1.030 UA BLOOD DIPSTICK (test code = SRINIVAS) 1+ mg/DL NEG A UA PH DIPSTICK (test code = MAXX) 5.5 pH UNITS 5.0-7.0 UA PROTEIN DIPSTICK (test code = PROU) NEGATIVE mg/dL NEG UA UROBILINIOGEN DIPSTICK (test code = URO) 0.2 mg/dL <2.0 UA NITRITE DIPSTICK (test code = HA) NEGATIVE SCREEN NEG UA LEUKOCYTE ESTERASE DIPSTICK (test code = LEUU) NEGATIVE Leuk/mcL NEGATIVE UA CULTURE NEEDED? (test code = UACULT) Criteria Culture CHK SOURCE OF URINE: CLEAN CATCHIndication for culture: Sev. Sepsis-no other srcSpec Comments: NO ORDERFOR URINE CULTUREComments to Phleb: PATUR HCG [id number] 11:36:00* Test Item Value Reference Range Interpretation Comme nts UR HCG QUAL (test code = HCGQLU) NEGATIVE NEGATIVE SOURCE OF URINE: CLEAN CATCHIndication for culture: Sev. Sepsis-no other srcSpec Comments: NO ORDERFOR URINE CULTUREComments to Phleb: PATCBC W/AUTO DIFF 2019-02-01 11:26:00* Test Item Value Reference Range Interpretation Comme nts WHITE BLOOD CELL (test code = WBC) 8.8 K/mm3 3.5-11.0 N RED BLOOD CELL (test code = RBC) 4.71 M/mm3 4.70-6.10 N HEMOGLOBIN (test code = HGB) 14.5 G/DL 10.4-14.9 N HEMATOCRIT (test code = HCT) 42.3 % 31.5-44.1 N MEAN CELL VOLUME (test code = MCV) 89.8 Fl 84.5-98.6 N MEAN CELL HGB (test code = MCH) 30.8 pg 27.0-34.2 N MEAN CELL HGB CONCETRATION ( test code = MCHC) 34.3 G/DL 31.5-34.0 H RED CELL DISTRIBUTION WIDTH (test code = RDW) 13.9 SD 11.5-14.5 N PLATELET COUNT (test code = PLT) 319.0 K/mm3 150-450 N MEAN PLATELET VOLUME (test c ode = MPV) 10.30 fL 7.0-10.5 N NEUTROPHIL % (test code = NT%) 68.5 % 40-76 N LYMPHOCYTE % (test code = LY%) 23.3 % 20.5-51.1 N MONOCYTE % (test code = MO%) 6.2 % 1.7-9.3 N EOSINOPHIL % (test code = EO%) 1.4 % 0.0-6.0 N BASOPHIL % (test code = BA%) 0.6 % 0.0-2.0 N NEUTROPHIL # (test code = NT#) 6.05 K/mm3 1.8-7.6 N LYMPHOCYTE # (test code = LY#) 2.1 K/mm3 0.6-3.2 N MONOCYTE # (test code = MO#) 0.6 K/mm3 0.3-1.1 N EOSINOPHIL # (test code = EO#) 0.1 K/mm3 0.0-0.4 N BASOPHIL # (test code = BA#) 0.1 K/mm3 0.0-0.1 N MANUAL DIFF REQUIRED (test c ode = MDIFF) NO DIFF/SCN CRITERIA
[2024-04-06] MEDS ORDERED: KETOROLAC 30 MG/ML INJ ONE (10:22)
[2024-04-06] MEDS ORDERED: ONDANSETRON 4 MG (ODT) TAB ONE (10:23)
[2024-04-06] MEDS ORDERED: HYDROCODONE/APAP 10/325 TAB ONE (10:23)
[2024-04-06] MEDS ORDERED: DIAZEPAM 5 MG TABLET ONE (10:23)
--- NOTE | 2024-04-06 11:52 | ER ---
Nurse's Notes [facility] Name: Renate Miramontes Age: 38 yrs Sex: Female : 1985 Arrival Date: 04/06/2024 Time: 10:09 Bed 5 Private MD: Diagnosis: Fall (on) (from) unspecified stairs and steps-BARSTOOL;Unspecified symptoms and signs involving the musculoskeletal system Presentation: 04/06 10:19 Chief complaint: Patient states: tailbone pain s/p fall yesterday. pt states that she cm10 went to sit on a stool that wasn't there and landed on her butt. Coronavirus screen: Client denies travel out of the [place] in the last 14 days. Ebola Screen: Patient denies travel to an Ebola-affected area in the 21 days before illness onset. Initial Sepsis Screen: Does the patient meet any 2 criteria? HR > 90 bpm. Does the patient have a suspected source of infection? No. Patient's initial sepsis screen is negative. Risk Assessment: Do you want to hurt yourself or someone else? Patient reports no desire to harm self or others. Onset of symptoms was April 06, 2024. 10:19 Method Of Arrival: Ambulatory cm10 10:19 Acuity: VISH 4 cm10 Triage Assessment: 10:20 General: Appears uncomfortable, Behavior is calm, cooperative. Neuro: No deficits cm10 noted. Level of Consciousness is awake, alert, obeys commands, Oriented to person, place, time, situation, Appropriate for age. Respiratory: No deficits noted. Airway is patent Respiratory effort is even, unlabored, Respiratory pattern is regular, symmetrical. Historical: - Allergies: 10:18 EGG/POULTRY; cm10 - PMHx: 10:17 ADD/ADHD; ss - PSHx: 10:17 Ligation of fallopian tube; Tonsillectomy; ss - Immunization history:: Adult Immunizations up to date. - Infectious Disease History:: Denies. - Social history:: Smoking status: Reported history of juuling and/or vaping. - Family history:: not pertinent. Screenin:18 [facility] ED Fall Risk Assessment (Adult) History of falling in the last 3 months, ha1 including since admission Yes- single mechanical fall (1 pt) Confusion or Disorientation No (0 pts) Intoxicated or Sedated No (0 pts) Impaired Gait Yes (1 pt) Mobility Assist Device Used No (0 pt) Altered Elimination No (0 pt) Score/Fall Risk Level 3 or more points = High Risk Oriented to surroundings, Maintained a safe environment, Educated pt \T\ family on fall prevention, incl call for assistance when getting out of bed, Hourly rounding (assess needs \T\ fall precautionary measures) done. Abuse screen: Denies threats or abuse. Denies injuries from another. Nutritional screening: No deficits noted. Tuberculosis screening: No symptoms or risk factors identified. Assessment: 10:13 General: Appears uncomfortable, Behavior is cooperative. Pain: Complains of pain in ha1 coccyx Pain radiates to right leg Pain currently is 9 out of 10 on a pain scale. Quality of pain is described as aching, throbbing. Neuro: Level of Consciousness is awake, alert, obeys commands, Oriented to person, place, time, situation. Cardiovascular: Capillary refill < 3 seconds Patient's skin is warm and dry. Respiratory: Airway is patent Respiratory effort is even, unlabored, Respiratory pattern is regular, symmetrical. GI: No signs and/or symptoms were reported involving the gastrointestinal system. Abdomen is round non-distended. : No signs and/or symptoms were reported regarding the genitourinary system. Derm: Skin is pink, warm \T\ dry. Musculoskeletal: Circulation, motion, and sensation intact. 11:00 Reassessment: Patient and/or family updated on plan of care and expected duration. Pain ha1 level reassessed. Patient is alert, oriented x 3, equal unlabored respirations, skin warm/dry/pink. Patient states feeling better. Patient states symptoms have improved. 12:13 Reassessment: Patient and/or family updated on plan of care and expected duration. Pain ha1 level reassessed. Patient is alert, oriented x 3, equal unlabored respirations, skin warm/dry/pink. PAIN 4/10 Patient states feeling better. Patient states symptoms have improved. Vital Signs: 10:19 BP 152 / 111; Pulse 98; Resp 15; Temp 98.5(TE); Pulse Ox 98% on R/A; Weight 101.15 kg; cm10 Height 5 ft. 7 in. ; Pain 6/10; 10:33 BP 126 / 90; Pulse 88; Resp 18 S; Pulse Ox 98% on R/A; ha1 11:00 BP 127 / 85; Pulse 85; Resp 17 S; Pulse Ox 98% on R/A; ha1 12:00 BP 128 / 84; Pulse 87; Resp 18 S; Pulse Ox 97% on R/A; ha1 10:19 Body Mass Index 34.93 (101.15 kg, 170.18 cm) cm10 10:19 Pain Scale: Adult cm10 ED Course: 10:12 Patient arrived in ED. ra3 10:13 Arm band placed on right wrist. ha1 10:13 Patient has correct armband on for positive identification. Bed in low position. Call ha1 light in reach. Side rails up X 1. 10:13 Pillow given. ha1 10:14 Tony Wyman MD is Attending Physician. valdo 10:17 Lolis Crowder RN is Primary Nurse. ha1 10:20 Triage completed. cm10 11:05 Pelvis XRAY In Process Unspecified. EDMS 11:05 Sacrum And Coccyx XRAY In Process Unspecified. EDMS 11:05 Lumbar Spine (3 Views) XRAY In Process Unspecified. EDMS 11:52 Ryan Mcdonnell MD is Referral Physician. valdo 12:13 No provider procedures requiring assistance completed. Patient did not have IV access ha1 during this emergency room visit. 12:14 Provided Education on: FOLLOW UP WITH ORTHOPEDIC . ha1 Administered Medications: 10:33 Drug: Diazepam PO 10 mg PO once Route: PO; ha1 11:00 Follow up: Response: No adverse reaction; Marked relief of symptoms ha1 10:33 Drug: Ketorolac IM 60 mg IM once Route: IM; Site: right ventrogluteal; ha1 11:00 Follow up: Response: No adverse reaction; Marked relief of symptoms; Pain is decreased ha1 10:33 Drug: [place] PO 10 mg-325 mg 1 tabs PO once Route: PO; ha1 11:00 Follow up: Response: No adverse reaction; Marked relief of symptoms ha1 10:33 Drug: Ondansetron Oral Disintegrating Tablet Oral Disintegrating Tablet 4 mg PO once ha1 Route: PO; 11:00 Follow up: Response: No adverse reaction; Marked relief of symptoms ha1 Medication: 10:34 VIS not applicable for this client. ha1 Outcome: 11:51 Discharge ordered by . valdo 12:14 Discharged to home ambulatory, with family, ha1 12:14 Condition: stable 12:14 Discharge instructions given to patient, family, Instructed on discharge instructions, follow up and referral plans. medication usage, Demonstrated understanding of instructions, follow-up care, medications, Prescriptions given X 3, 12:14 Patient left the ED. Signatures: Dispatcher [employer] EDMS Tony Wyman MD MD cha Blanchard, Shelby, RN RN Lolis Crowder RN RN 1 Aliza Valle RN RN 10 Yesenia Castro 3
--- NOTE | 2024-04-06 11:52 | EDPHYS ---
Physician Documentation [facility] Name: Renate Miramontes Age: 38 yrs Sex: Female : 1985 Arrival Date: 04/06/2024 Time: 10:09 Bed 5 Private MD: GARRY Physician Tony Wyman HPI: 04/06 10:20 This 38 yrs old Female presents to ER via Ambulatory with complaints of valdo FALL:Tailbone injury. 10:20 The patient presents with pain and decreased range of motion, and an injury. The valdo symptoms are located in the low back, sacrum. Onset: The symptoms/episode began/occurred yesterday. The pain does not radiate. Associated signs and symptoms: The patient has no apparent associated signs or symptoms. The problem was sustained during a fall, off barstool. Modifying factors: The patient symptoms are alleviated by nothing, remaining still, the patient symptoms are aggravated by any movement. Details of fall: The patient fell from seated position, off the edge of a bed. Associated injuries: The patient sustained coccyx and gluteal cleft, painful injury. Severity of symptoms: At their worst the symptoms were moderate, in the emergency department the symptoms are unchanged. Historical: - Allergies: 10:18 EGG/POULTRY; cm10 - PMHx: 10:17 ADD/ADHD; ss - PSHx: 10:17 Ligation of fallopian tube; Tonsillectomy; ss - Immunization history:: Adult Immunizations up to date. - Infectious Disease History:: Denies. - Social history:: Smoking status: Reported history of juuling and/or vaping. - Family history:: not pertinent. ROS: 10:20 Constitutional: Negative for fever, chills, and weight loss, Eyes: Negative for injury, valdo pain, redness, and discharge, ENT: Negative for injury, pain, and discharge, Neck: Negative for injury, pain, and swelling, Cardiovascular: Negative for chest pain, palpitations, and edema, Respiratory: Negative for shortness of breath, cough, wheezing, and pleuritic chest pain, Abdomen/GI: Negative for abdominal pain, nausea, vomiting, diarrhea, and constipation, : Negative for injury, bleeding, discharge, and swelling, MS/Extremity: Negative for injury and deformity, Skin: Negative for injury, rash, and discoloration, Neuro: Negative for headache, weakness, numbness, tingling, and seizure, Psych: Negative for depression, anxiety, suicide ideation, homicidal ideation, and hallucinations, Allergy/Immunology: Negative for hives, rash, and allergies, Endocrine: Negative for neck swelling, polydipsia, polyuria, polyphagia, and marked weight changes, Hematologic/Lymphatic: Negative for swollen nodes, abnormal bleeding, and unusual bruising, 10:20 Back: Positive for injury or acute deformity, decreased range of motion, pain with movement, Exam: 10:20 Constitutional: This is a well developed, well nourished patient who is awake, alert, valdo and in no acute distress. Head/Face: Normocephalic, atraumatic. Eyes: Pupils equal round and reactive to light, extra-ocular motions intact. Lids and lashes normal. Conjunctiva and sclera are non-icteric and not injected. Cornea within normal limits. Periorbital areas with no swelling, redness, or edema. ENT: Nares patent. No nasal discharge, no septal abnormalities noted. Tympanic membranes are normal and external auditory canals are clear. Oropharynx with no redness, swelling, or masses, exudates, or evidence of obstruction, uvula midline. Mucous membranes moist. Neck: Trachea midline, no thyromegaly or masses palpated, and no cervical lymphadenopathy. Supple, full range of motion without nuchal rigidity, or vertebral point tenderness. No Meningismus. Chest/axilla: Normal chest wall appearance and motion. Nontender with no deformity. No lesions are appreciated. Cardiovascular: Regular rate and rhythm with a normal S1 and S2. No gallops, murmurs, or rubs. Normal PMI, no JVD. No pulse deficits. Respiratory: Lungs have equal breath sounds bilaterally, clear to auscultation and percussion. No rales, rhonchi or wheezes noted. No increased work of breathing, no retractions or nasal flaring. Abdomen/GI: Soft, non-tender, with normal bowel sounds. No distension or tympany. No guarding or rebound. No evidence of tenderness throughout. Skin: Warm, dry with normal turgor. Normal color with no rashes, no lesions, and no evidence of cellulitis. MS/ Extremity: Pulses equal, no cyanosis. Neurovascular intact. Full, normal range of motion., bilateral aka Neuro: Awake and alert, GCS 15, oriented to person, place, time, and situation. Cranial nerves II-XII grossly intact. Motor strength 5/5 in all extremities. Sensory grossly intact. Cerebellar exam normal. Normal gait. 10:20 Abdomen/GI: Rectal exam: is unremarkable, tenderness, is not appreciated, Hernia: not appreciated, 10:20 Back: ROM is painful, decreased, with all movement, normal spinal alignment noted, CVA tenderness, is absent, vertebral tenderness, is not appreciated, muscle spasm, is not present, 10:20 Musculoskeletal/extremity: DVT Exam: No signs of deep vein thrombosis. no pain, no swelling, no tenderness, negative Homans' sign noted on exam, no appreciated bluish discoloration, no erythema, no increased warmth, Vital Signs: 10:19 BP 152 / 111; Pulse 98; Resp 15; Temp 98.5(TE); Pulse Ox 98% on R/A; Weight 101.15 kg; cm10 Height 5 ft. 7 in. ; Pain 6/10; 10:33 BP 126 / 90; Pulse 88; Resp 18 S; Pulse Ox 98% on R/A; ha1 11:00 BP 127 / 85; Pulse 85; Resp 17 S; Pulse Ox 98% on R/A; ha1 12:00 BP 128 / 84; Pulse 87; Resp 18 S; Pulse Ox 97% on R/A; ha1 10:19 Body Mass Index 34.93 (101.15 kg, 170.18 cm) cm10 10:19 Pain Scale: Adult cm10 MDM: 10:14 Medical Screening Exam initiated valdo 10:23 Differential diagnosis: contusion, fracture, multiple trauma, sprain, strain. Data [facility] reviewed: vital signs, nurses notes, radiologic studies, plain films. Consideration of Admission/Observation Escalation of care including admission/observation considered. I considered the following discharge prescriptions or medication management in the emergency department Medications were administered in the Emergency Department. See MAR. Independent interpretation of the following test(s) in the Emergency Department X-Ray: My interpretation is x rays neg. Test considered but Not performed: CT: no rn women services trauma. Care significantly affected by the following chronic conditions: add/adhd. 04/06 10:20 Order name: Pelvis XRAY [facility] 04/06 10:20 Order name: Sacrum And Coccyx XRAY [facility] 04/06 10:20 Order name: Lumbar Spine (3 Views) XRAY valdo Administered Medications: 10:33 Drug: Diazepam PO 10 mg PO once Route: PO; ha1 11:00 Follow up: Response: No adverse reaction; Marked relief of symptoms ha1 10:33 Drug: Ketorolac IM 60 mg IM once Route: IM; Site: right ventrogluteal; ha1 11:00 Follow up: Response: No adverse reaction; Marked relief of symptoms; Pain is decreased ha1 10:33 Drug: [place] PO 10 mg-325 mg 1 tabs PO once Route: PO; ha1 11:00 Follow up: Response: No adverse reaction; Marked relief of symptoms ha1 10:33 Drug: Ondansetron Oral Disintegrating Tablet Oral Disintegrating Tablet 4 mg PO once ha1 Route: PO; 11:00 Follow up: Response: No adverse reaction; Marked relief of symptoms ha1 Disposition Summary: 04/06/24 11:51 Discharge Ordered Notes: Location: Home valdo Problem: new valdo Symptoms: have improved valdo Condition: Stable valdo Diagnosis - Fall (on) (from) unspecified stairs and steps - BARSTOOL valdo - Unspecified symptoms and signs involving the musculoskeletal system valdo Followup: valdo - With: Private Physician - When: 2 - 3 days - Reason: Recheck today's complaints, Continuance of care, Re-evaluation by your physician Followup: valdo - With: Ryan Mcdonnell MD - When: 2 - 3 days - Reason: Recheck today's complaints, Re-evaluation by your physician Discharge Instructions: - Discharge Summary Sheet valdo - Lumbosacral Strain valdo - Fall Prevention in the Home, Adult valdo - Musculoskeletal Pain valdo - Fall Prevention in the Home, Adult, [id number] [facility] Forms: - Medication Reconciliation Form [facility] - Antibiotic Education valdo - Prescription Opioid Use valdo - Patient Portal Instructions [facility] - Leadership Thank You Letter [facility] Prescriptions: - acetaminophen-codeine 300-30 mg Oral tablet - take 2 tablet ORAL route every 6 hours as needed for pain; 20 tablet; Refills: valdo 0, Product Selection Permitted - Diclofenac Sodium 75 mg Oral tablet, delayed release (enteric coated) - take 1 tablet ORAL route 2 times per day; 20 tablet; Refills: 0, Product valdo Selection Permitted - methocarbamol 750 mg Oral tablet - take 1 tablet ORAL route every 4 hours; 30 tablet; Refills: 0, Product valdo Selection Permitted Signatures: Dispatcher [employer] EDMS Tony Wyman MD MD cha Blanchard, Shelby, RN RN ss Lolis Crowder, RN RN ha1 Aliza Valle RN RN cm10 Corrections: (The following items were deleted from the chart) 10:20 10:20 Pelvis+RAD.RAD.BRZ ordered. EDMS EDMS 10:20 10:20 Sacrum And Coccyx+RAD.RAD.BRZ ordered. EDMS EDMS 10:20 10:20 Lumbar Spine 3 Views+RAD.RAD.BRZ ordered. EDMS EDMS 11:52 11:51 Fracture of coccyx - CLINICALLY valdo lyle
--- NOTE | 2024-04-06 12:10 | RAD REPORT ---
EXAMINATION: XR Lumbar Spine 3 Views CLINICAL INDICATION: Female, 38 years old. [facility] MAIN PAIN Bed Name: 5 TECHNIQUE: AP, lateral, focused lateral lumbosacral views of the lumbar spine were obtained. COMPARISON: No prior exam. FINDINGS: For purposes of this dictation, it is assumed that there are 5 lumbar type vertebral bodies. ALIGNMENT: There is normal alignment of the lumbar spine. BONES: Vertebral bodies are normal in height. No aggressive osseous lesions. Mild lower lumbar facet degenerative changes, stable. DISCS: Disc heights are maintained. IMPRESSION: No acute lumbar spine abnormality.
--- NOTE | 2024-04-06 12:14 | RAD REPORT ---
EXAMINATION: XR PELVIS CLINICAL INDICATION: Female, 38 years old. [facility] MAIN PAIN Bed Name: 5 TECHNIQUE: AP Pelvis radiograph was obtained. COMPARISON: No prior exam. FINDINGS: No evidence of fracture or dislocation. Normal alignment. No evidence of AVN. Soft tissues are unremarkable. IMPRESSION: No acute or significant abnormalities.
--- NOTE | 2024-04-06 12:16 | RAD REPORT ---
EXAMINATION: XR Sacrum And Coccyx HISTORY: PAIN TECHNIQUE: 3 radiographic views of the sacrum and coccyx. FINDINGS: No acute fracture or dislocation. Moderate bilateral SI joint degenerative changes. No visible erosio ns. Mild lower lumbar facet joint degenerative changes.
[2024-04-06 12:19] VITALS: TEMP 98.5; O2SAT 98
[2024-04-06 12:20] VITALS: BP 126/90
== END 2024-04-06 12:14 | disposition home or self-care (01) ==
LOC: ER 10:09
DX: R29.91 Unspecified symptoms and signs involving the musculoskeletal system (principal); F17.290 Nicotine dependence, other tobacco product, uncomplicated; W18.39XA Other fall on same level, initial encounter; Y93.9 Activity, unspecified; Y92.9 Unspecified place or not applicable
CPT/HCPCS: 72100; 72220; 72170; 96372; 99284; Q0162